=== PATIENT | female | born 1980 | race Caucasian/White ===

== ENCOUNTER 2017-08-03 03:24 | Inpatient (IN) | payer SELFPAY ==
[~2017-08-03] VITALS: Ht 167.6 cm; Wt 81.6 kg
[2017-08-03 03:28] VITALS: BP 128/77
--- NOTE | 2017-08-03 03:38 | NUR ---
PT TAKEN TO BED 8
[2017-08-03] MEDS ORDERED: NACL 0.9% 500 ML IV ONE (03:39)
[2017-08-03] MEDS ORDERED: ONDANSETRON 4 MG/2 ML VIAL IVP ONE (03:40)
[2017-08-03] MEDS ORDERED: KETOROLAC 30 MG/ML VIAL IVP ONE (03:40)
--- NOTE | 2017-08-03 03:43 | NUR ---
Dr. Leggett evaluating patient at bedside.
--- NOTE | 2017-08-03 03:45 | NUR ---
PATIENT PRESENTS TO ED WITH C/O EPIGASTRIC PAIN AND NAUSEA. HX OF GALLSTONES. PT SKIN IS PINK/WARM/DRY; AAOX4 WITH EVEN AND STEADY GAIT; LUNGS CLEAR BL; HR EVEN AND REGULAR; PT DENIES ANY FEVER, CP, SOB, OR COUGH AT THIS TIME; PATIENT STATES PAIN OF 10/10 AT THIS TIME; VSS; PATIENT POSITIONED FOR COMFORT; HOB ELEVATED; BEDRAILS UP X2; BED DOWN. ER MD MADE AWARE OF PT STATUS.
[2017-08-03 04:00] LABS: HEMATOCRIT 41.7 % (36-48); HEMOGLOBIN 13.4 g/dL (12.0-16.0); MEAN CORPUSCULAR HEMOGLOBIN 28 pg (27-31); MEAN CORPUSCULAR HGB CONC 32 g/dL (33-37); MEAN CORPUSCULAR VOLUME 86 fL (80-94); PLATELET COUNT (AUTO) 322 K/uL (140-450); RED BLOOD CELL COUNT(AUTO) 4.85 MIL/uL (4.20-5.40); RED CELL DISTRIBUTION WIDTH 11.9 % (11.6-13.7); WHITE BLOOD COUNT (AUTO) 7.5 K/uL (4.8-10.8)
[2017-08-03 04:13] LABS: ANION GAP 8.6 (8-16); CARBON DIOXIDE 30.8 mmol/L (21-32); CREATININE 0.8 mg/dL (0.6-1.3); POTASSIUM 3.4 mmol/L (3.5-5.1)
[2017-08-03 04:16] LABS: EOSINOPHILS % (MANUAL) 1 % (0-4); LYMPHOCYTES % (MANUAL) 32 % (20-46); MONOCYTES % (MANUAL) 12 % (5-12)
[2017-08-03 04:19] LABS: ALBUMIN 3.3 g/dL (3.4-5.0); TOTAL BILIRUBIN 0.2 mg/dL (0.0-1.0)
[2017-08-03] MEDS ORDERED: MORPHINE SULFATE 2 MG/ML SYR IVP ONE (05:05)
[2017-08-03] MEDS ORDERED: IBUP-2213 PO (05:07)
[2017-08-03] MEDS: NACL 0.9% 1,000 ML IV SCH ×3 (05:21→22:01)
[2017-08-03] MEDS ORDERED: HYDROmorphone 1 MG/ML AMP IVP PRN (05:25)
[2017-08-03] MEDS ORDERED: ONDANSETRON 4 MG/2 ML VIAL IVP PRN (05:25)
[2017-08-03] MEDS ORDERED: ACETAMINOPHEN 325 MG TAB PO PRN (05:25)
[2017-08-03] MEDS ORDERED: MORPHINE SULFATE 4 MG/ML SYR ONE (05:31)
--- NOTE | 2017-08-03 05:38 | NUR ---
Patient will be admitted to care of DR THOMPSON. Admited to TELE. Will go to room 112B. Belongings list completed. Report to MATTHEW ROD.
[2017-08-03 05:40] VITALS: BP 121/85
--- NOTE | 2017-08-03 05:40 | NUR ---
PATIENT ADMITTED TO THE UNIT FROM THE ER. PATIENT IS AWAKE, ALERT, AND ORIENTED. AMBULATORY. NO SIGNS AND SYMPTOMS OF DISTRESS NOTED. NO COMPLAINTS OF PAIN AT THIS TIME. SKIN IS INTACT. IV SITE IS NOTED ON LEFT AC, SALINE LOCKED. BED IN LOWEST POSITION, SIDE RAILS UP AND CALL LIGHT WITHIN REACH, WILL CONTINUE TO MONITOR.
[2017-08-03 05:48] LABS: PROTHROMBIN TIME 10.8 secs (10.8-13.4)
[2017-08-03 05:58] LABS: CHOL/HDL RATIO 2.5 (1-4.5); FREE T4 (FREE THYROXINE) 1.11 ng/dL (0.76-1.46); MAGNESIUM 2.1 mg/dL (1.8-2.4); PHOSPHORUS 4.1 mg/dL (2.5-4.9); THYROID STIMULATING HORMONE 3.86 uIU/mL (0.34-3.74)
[2017-08-03] MEDS ORDERED: NACL 0.9% 1,000 ML IV SCH (05:59)
[2017-08-03] MEDS ORDERED: KCL 20 MEQ/WATER INJ PREMIX 100 ML IV ONE (06:00)
--- NOTE | 2017-08-03 07:00 | NUR ---
[facility] CALLED. THEY WILL BE HERE AROUND 11:30 FOR HIDA SCAN
[2017-08-03 07:15] LABS: BILIRUBIN,URINE NEGATIVE (NEGATIVE); BLOOD, URINE 3+ (NEGATIVE); COLOR,URINE YELLOW (YELLOW); LEUKOCYTE ESTERASE ,URINE NEGATIVE (NEGATIVE); NITRITE, URINE NEGATIVE (NEGATIVE); UGLUCOSE NEGATIVE (NEGATIVE)
--- NOTE | 2017-08-03 07:19 | NUR ---
PATIENT REPORT GIVEN TO MORNING NURSE. PATIENT IS IN STABLE CONDITION
[2017-08-03 07:20] LABS: BARBITURATE, URINE NEG. ng/ml (NEG <=200); BENZODIAZEPINE, URINE NEG. ng/mL (NEG <=200); CANNABINOID, URINE NEG. ng/mL (NEG <=50); COCAINE, URINE NEG. ng/mL (NEG <=300); OPIATE, URINE NEG. ng/mL (NEG <=2000); PHENCYCLIDINE SCREEN,URINE NEG. ng/mL (NEG <=25)
--- NOTE | 2017-08-03 07:20 | NUR ---
RECEIVED PT REPORT FROM SACK SORTER NURSE AT BEDSIDE. PT IS AOX4. PT SHOWED NO S/S OF ACUTE DISTRESS. NO C/O PAIN AT THIS TIME. SKIN INTACT. IV NOTED ON THE LEFT ARM, PATENT, AND INFUSING WELL. CALL LIGHT WITHIN REACH. BED LOWERED AND CALL LIGHT WITHIN REACH. WILL CONTINUE TO MONITOR.
[2017-08-03 07:50] LABS: APPEARANCE,URINE CLEAR (CLEAR); RBC,URINE NONE SEEN /HPF (0-5); WBC,URINE 0-5 (RARE) /HPF (0-5)
[2017-08-03] MEDS: DOCUSATE SODIUM 100 MG GELCAP PO SCH ×2 (09:00→20:47)
[2017-08-03] MEDS ORDERED: PANTOPRAZOLE 40 MG INJ VIAL IVP SCH (09:00)
[2017-08-03] MEDS ORDERED: DOCUSATE SODIUM 100 MG GELCAP PO SCH (09:00)
[2017-08-03 09:13] VITALS: BP 118/58
--- NOTE | 2017-08-03 09:51 | NUR ---
PATIENT HAS BEEN SCREENED AND CATEGORIZED MODERATE NUTRITION RISK. PATIENT WILL BE SEEN WITHIN 3-5 DAYS OF ADMISSION. 08/05/17-08/07/[address]
[2017-08-03] MEDS: HYDROmorphone 1 MG/ML AMP IVP PRN ×2 (11:33→17:27)
[2017-08-03 12:00] VITALS: BP 117/75
--- NOTE | 2017-08-03 12:54 | NUR ---
RECEIVED PT REPORT FROM SUPERVISOR SANDING NURSE AT BEDSIDE. PT IS AOX4. PT SHOWED NO S/S OF ACUTE DISTRESS. NO C/O PAIN AT THIS TIME. SKIN INTACT. IV NOTED ON THE LEFT ARM, PATENT, AND INFUSING WELL. CALL LIGHT WITHIN REACH. BED LOWERED AND CALL LIGHT WITHIN REACH. WILL CONTINUE TO MONITOR. Addendum: 08/03/17 at 1255 by Agustin Hopkins RN PLEASE DISCARD THIS NOTE, WRONG TIME.
--- NOTE | 2017-08-03 13:20 | NUR ---
DR. CABEZAS SEEN THE PT. STATED HE WILL WAIT FOR THE HIDA SCAN RESULT, THEN DECIDE ABOUT THE SURGERY.
--- NOTE | 2017-08-03 15:00 | NUR ---
PT LEFT FOR HIDA SCAN. SALINE LOCKED. PT LEFT IN STABLE CONDITION.
--- NOTE | 2017-08-03 16:30 | NUR ---
PT BACK TO THE UNIT. VITAL SIGNS TAKEN. PT IN STABLE CONDITION. RADIOLOGIST WANTS TO KEEP HER NPO FOR ANOTHER HOUR IN CASE DELAYED IMAGE NEEDED.
[2017-08-03 17:00] VITALS: BP 115/78
--- NOTE | 2017-08-03 17:05 | NUR ---
ROAM CALLED FROM [facility] STATED THAT NO DELAYED IMAGE NEEDED. RESULT HASN'T BEEN READ BY THE RADIOLOGIST YET. INFORMED DR. CORCORAN. DR ORDERED CLEAR LIQUID DIET, THEN NPO AFTER MIDNIGHT.
[2017-08-03] MEDS ORDERED: AMPICILLIN 1,000 MG in NACL 0.9% 50 ML IV SCH (18:00)
--- NOTE | 2017-08-03 19:37 | NUR ---
PATIENT REPORT GIVEN TO THE PM NURSE AT BEDSIDE. PATIENT IS IN STABLE CONDITION
--- NOTE | 2017-08-03 19:40 | NUR ---
RECEIVED PT FROM DAY SHIFT NURSE PT IS AAOX4 AMBULATORY IV ON LEFT AC INFUSING WELL ON TELEMETRY SR , RELATIVES AT BED SIDE INITIAL ASSESSMENT DONE
[2017-08-03 20:00] VITALS: BP 140/74
--- NOTE | 2017-08-03 23:23 | NUR ---
DR CABEZAS WAS NOTIFY HIDE SCAN RESULT AND HE SAID FOR TOMORROW REGULAR DIET AND SHE CAN GO HOME AND HE CAN SEE PT ON HIS OFFICE AFTER DISCHARGE
[2017-08-04] VITALS: BP 116/75
[2017-08-04] MEDS: HYDROmorphone 1 MG/ML AMP IVP PRN ×4 (00:39→21:58)
--- NOTE | 2017-08-04 01:30 | NUR ---
AFTER PAIN MEDIC GIVEN PT SLEEPS WELL WITH NOT PAIN IV ON LEFT AC INFUSING WELL
[2017-08-04 04:00] VITALS: BP 102/61
--- NOTE | 2017-08-04 04:00 | NUR ---
PT AMBULATES TO THE RESTROOM VOIDING WELL DENIES ANY PAIN AT THIS TIME ON TELEMETRY SR
[2017-08-04] MEDS: AMPICILLIN 1,000 MG in NACL 0.9% 50 ML IV SCH ×3 (05:11→21:53)
--- NOTE | 2017-08-04 06:22 | NUR ---
PT VERBALIZED TO BE IN PAIN FOLLOW PROTOCOL PAIN MEDIC GIVEN ORDER
[2017-08-04 06:50] LABS: BASOPHILS # (AUTO) 0.3 K/uL (0.00-0.22); BASOPHILS % (AUTO) 4.7 % (0.0-2.0); EOSINOPHILS # (AUTO) 0.2 K/uL (0-0.4); EOSINOPHILS % (AUTO) 3.6 % (0.0-4.0); HEMATOCRIT 38.7 % (36-48); LYMPHOCYTES # (AUTO) 2.4 K/uL (2.5-16.5); LYMPHOCYTES % (AUTO) 39.8 % (20.5-51.1); MEAN CORPUSCULAR HEMOGLOBIN 29 pg (27-31); MEAN CORPUSCULAR HGB CONC 34 g/dL (33-37); MEAN CORPUSCULAR VOLUME 86 fL (80-94); MONOCYTES # (AUTO) 0.7 K/uL (0.8-1.0); MONOCYTES % (AUTO) 12.4 % (1.7-9.3); NEUTROPHILS # (AUTO) 2.3 K/uL (1.8-7.7); NEUTROPHILS % (AUTO) 39.5 % (42.2-75.2); PLATELET COUNT (AUTO) 307 K/uL (140-450); RED BLOOD CELL COUNT(AUTO) 4.52 MIL/uL (4.20-5.40); RED CELL DISTRIBUTION WIDTH 12.2 % (11.6-13.7); WHITE BLOOD COUNT (AUTO) 5.9 K/uL (4.8-10.8)
[2017-08-04 07:10] LABS: ANION GAP 8.4 (8-16); CARBON DIOXIDE 28.6 mmol/L (21-32); CREATININE 0.8 mg/dL (0.6-1.3)
--- NOTE | 2017-08-04 07:10 | NUR ---
RECEIVED REPORT FROM BOAT [employer] PLANT UTILITY SUPERVISOR RN. PATIENT IS AAOX4, NO SIGNS AND SYMPTOMS OF DISTRESS NOTED AT THIS TIME. HAS IV IN LEFT FA 20G INFUSING NS AT 120 ML/HR. SITE IS CLEAN, DRY, PATENT AND INTACT. DISCUSSED PLAN OF CARE WITH PATIENT AND SHE VERBALIZED UNDERSTANDING. BED IN LOWEST POSITION, SIDERAILS UP X2, CALL LIGHT PLACED WITHIN REACH, WILL CONTINUE TO MONITOR.
[2017-08-04 07:18] LABS: MAGNESIUM 2.1 mg/dL (1.8-2.4); PHOSPHORUS 3.2 mg/dL (2.5-4.9)
[2017-08-04] MEDS ORDERED: DICYCLOMINE HCL LIQUID 10 MG/5 ML UDC PO SCH (07:25)
[2017-08-04] MEDS ORDERED: LIDOCAINE VISCOUS 2% 20 ML UDC PO PRN (07:25)
[2017-08-04] MEDS ORDERED: ALUMINUM HYD/MAG/SIMETHICONE 30 ML UDC PO PRN (07:25)
[2017-08-04] MEDS: NACL 0.9% 1,000 ML IV SCH (07:26)
[2017-08-04 08:00] VITALS: BP 135/77
[2017-08-04] MEDS: ONDANSETRON 4 MG/2 ML VIAL IVP PRN ×2 (08:22→14:26)
[2017-08-04] MEDS: DOCUSATE SODIUM 100 MG GELCAP PO SCH ×2 (08:22→21:55)
[2017-08-04] MEDS: LACTOBACILLUS RHAMNOSUS GG 1 EACH CAP PO SCH (08:22)
--- NOTE | 2017-08-04 08:33 | NUR ---
PATIENT TRANSFERRED TO MED SURG STATUS. WILL REMOVE TELE BOX AND CONTINUE TO MONITOR PATIENT.
[2017-08-04] MEDS ORDERED: PANTOPRAZOLE 40 MG TABEC PO SCH (09:00)
--- NOTE | 2017-08-04 09:55 | NUR ---
PATIENT TRIED TO EAT SOME JELLO, SAID HER STOMACH STILL FEELS UPSET, AND VOMITED 60ML. NO SIGNS AND SYMPTOMS OF DISTRESS NOTED AT THIS TIME.
--- NOTE | 2017-08-04 13:41 | NUR ---
PATIENT VOMITED 200 ML. NO SIGNS AND SYMPTOMS OF DISTRESS NOTED AT THIS TIME. REQUESTED TO TAKE A SHOWER. MOTHER WILL ASSIST HER IN THE SHOWER.
[2017-08-04 16:30] VITALS: BP 133/78
--- NOTE | 2017-08-04 19:20 | NUR ---
RECEIVED BEDSIDE REPORT FROM DAY SHIFT NURSE, BRENT RN, PT STABLE, NO DISTRESS NOTED, AAOX4, SKIN INTACT, IV TO THE L FA 20 RUNNING NS @120 ML/HR INFUSING WELL, CURRENTLY REPORTED HAVING NO PAIN AND NAUSEA. FAMILY BY BEDSIDE, ALL SAFETY PRECAUTION MET, INITIAL ASSESSMENT DONE, PT RESTING, CALL LIGHT WITHIN REACH, WILL CONTINUE TO MONITOR.
[2017-08-04] MEDS: PANTOPRAZOLE 40 MG TABEC PO SCH (21:55)
[2017-08-04 21:58] VITALS: BP 121/81
--- NOTE | 2017-08-04 21:58 | NUR ---
PT C/O ABD PAIN 06/05, PAIN MEDICATION GIVEN, DUE MEDICATION ALSO GIVEN, PT TOLERATED WELL, NO DISTRESS NOTED, CALL LIGHT WITHIN REACH WILL CONTINUE TO MONITOR.
[2017-08-05] VITALS: BP 107/64
--- NOTE | 2017-08-05 00:02 | NUR ---
PT RESTING, NO DISTRESS NOTED, V/S TAKEN, PT STATED HAVING NO PAIN AT THIS TIME, CALL LIGHT WITHIN REACH, WILL CONTINUE TO MONITOR.
--- NOTE | 2017-08-05 02:00 | NUR ---
MADE ROUNDS. PT ASLEEP. NO S/S OF ANY DISCOMFORT NOR PAIN NOTED. WILL CONTINUE TO MONITOR.
[2017-08-05] MEDS: AMPICILLIN 1,000 MG in NACL 0.9% 50 ML IV SCH ×2 (05:23→12:42)
[2017-08-05] MEDS: HYDROcodone/APAP 7.5/325 MG 1 TAB PO PRN ×2 (05:26→10:28)
--- NOTE | 2017-08-05 05:26 | NUR ---
DUE MEDICATION GIVEN, PT C/O PAIN OF 4/10, PAIN MEDICATION GIVEN, NO DISTRESS NOTED, PT RESTING, CALL LIGHT WITHIN REACH, WILL CONTINUE TO MONITOR,
[2017-08-05 06:39] LABS: HEMATOCRIT 38.9 % (36-48); MEAN CORPUSCULAR HEMOGLOBIN 29 pg (27-31); MEAN CORPUSCULAR HGB CONC 33 g/dL (33-37); MEAN CORPUSCULAR VOLUME 86 fL (80-94); PLATELET COUNT (AUTO) 294 K/uL (140-450); RED BLOOD CELL COUNT(AUTO) 4.54 MIL/uL (4.20-5.40); WHITE BLOOD COUNT (AUTO) 6.1 K/uL (4.8-10.8)
[2017-08-05 06:59] LABS: CARBON DIOXIDE 27.9 mmol/L (21-32); CREATININE 0.8 mg/dL (0.6-1.3); POTASSIUM 3.9 mmol/L (3.5-5.1)
--- NOTE | 2017-08-05 07:12 | NUR ---
ENDORSED PT TO DAY SHIFT BY BEDSIDE, PT STABLE NO DISTRESS NOTED, CALL LIGHT WITHIN REACH.
--- NOTE | 2017-08-05 07:13 | NUR ---
RECEIVED REPORT FROM THE FACER OPERATOR NURSE AT BEDSIDE FOR CONTINUITY OF CARE. PT IS AWAKE AND ORIENTED. INTRODUCED MYSELF AND UPDATE THE BOARD. PT IS C/O SOME NAUSEA. WILL MEDICATE. WANTED TO AMBULATE TO THE BATHROOM. ASSISTED. SKIN IS INTACT. IV ON L FA 20G TKO. LBM ON 08/01/17. WILL SPEAK WITH DR. KAY GUTIERREZ. LABS ARE UNREMARKABLE. WILL CONTINUE TO MONITOR PT.
[2017-08-05 07:19] LABS: MAGNESIUM 2.1 mg/dL (1.8-2.4); PHOSPHORUS 3.2 mg/dL (2.5-4.9)
[2017-08-05 07:32] LABS: EOSINOPHILS % (MANUAL) 6 % (0-4); LYMPHOCYTES % (MANUAL) 40 % (20-46); MONOCYTES % (MANUAL) 15 % (5-12)
--- NOTE | 2017-08-05 07:54 | NUR ---
NASREEN AQUINO. NOTIFIED DR TEJEDA RE. CONSTIPATION. HE ALSO PUT IN A GI COCKTAIL FOR ABD PAIN. WILL FIND OUT PLAN.
[2017-08-05 08:00] VITALS: BP 107/73
[2017-08-05] MEDS ORDERED: ALUMINUM HYD/MAG/SIMETHICONE 30 ML UDC PO SCH (08:00)
[2017-08-05] MEDS ORDERED: LIDOCAINE VISCOUS 2% 20 ML UDC PO SCH (08:00)
[2017-08-05] MEDS ORDERED: DICYCLOMINE HCL LIQUID 10 MG/5 ML UDC PO SCH (08:00)
[2017-08-05] MEDS: PANTOPRAZOLE 40 MG TABEC PO SCH (08:33)
[2017-08-05] MEDS: LACTOBACILLUS RHAMNOSUS GG 1 EACH CAP PO SCH (08:33)
[2017-08-05] MEDS: DOCUSATE SODIUM 100 MG GELCAP PO SCH (08:33)
[2017-08-05] MEDS: ONDANSETRON 4 MG/2 ML VIAL IVP PRN (08:34)
--- NOTE | 2017-08-05 08:40 | NUR ---
ADMINISTERED MORNING MEDS. PT C/O OF NAUSEA, ADMINISTERED ZOFRAN. PT TOLERATED WELL. PT STILL C/O OF ABD PAIN. EXPLAINED TO HER THAT THE GI COCKTAIL SHOULD HELP WITH THE ABD PAIN AND DISCOMFORT. EXPLAINED TO HER THAT WE WILL REASSESS IN ABOUT 30 MIN BEFORE ADMINISTERING PAIN MED. PT VERBALIZED UNDERSTANDING. WILL CONTINUE TO MONITOR PT.
[2017-08-05] MEDS ORDERED: SODIUM PHOSPHATE 118 ML ENEM RC SCH (08:57)
[2017-08-05] MEDS ORDERED: SENNA 8.6 MG TAB PO SCH (09:00)
--- NOTE | 2017-08-05 09:00 | NUR ---
PT REFUSED THE ENEMA THAT WAS ORDERED. SHE STATED SHE WILL TRY TO AMBULATE AND TRY HAVING A BM BEFORE HAVING THE ENEMA.
[2017-08-05] MEDS ORDERED: PANT40EC28 PO (10:21)
[2017-08-05] MEDS ORDERED: DOCU-299 PO (10:21)
--- NOTE | 2017-08-05 10:30 | NUR ---
PT'S NAUSEA IS BETTER. STILL HAD SOME ABD PAIN. ADMINISTERED NORCO. PT TOLERATED WELL. WILL CONTINUE TO MONITOR PT.
--- NOTE | 2017-08-05 11:35 | NUR ---
PT AMBULATING IN THE HALLWAYS. NO BM YET. WILL CONTINUE TO MONITOR PT.
--- NOTE | 2017-08-05 11:40 | NUR ---
PT'S RIDE IS HERE. WHEELED PT OUT IN A WHEELCHAIR. PT PERSONAL BELONGINGS WITH HER. PT IS IN STABLE CONDITION. Addendum: 08/05/17 at 1455 by Marine Tillman RN TIME AMENDED: 1444
--- NOTE | 2017-08-05 14:29 | NUR ---
GAVE DISCHARGE INSTRUCTIONS TO PT. ANSWERED ALL QUESTIONS. PT VERBALIZED UNDERSTANDING AND SIGNED APPROPRIATE FORMS. REMOVED IV, CANNULA INTACT. NO SIGNS OF BLEEDING. REMOVED ID BAND. PT WILL NOW GET DRESSED AND WILL LET ME KNOW WHEN HER RIDE GETS HERE. WE WILL HAVE A WHEELCHAIR AVAILABLE.
--- NOTE | 2017-08-05 14:40 | NUR ---
PT'S RIDE IS HERE. WHEELED PT OUT IN A WHEELCHAIR. PT PERSONAL BELONGINGS WITH HER. PT IS IN STABLE CONDITION.
== END 2017-08-05 14:40 | disposition home or self-care (01) | DRG 445 ==
LOC: MED 03:24 → MTU 05:25
PROVIDERS: ADMIT Family Medicine; ATTEND Family Medicine
DX: K80.70 Calculus of gallbladder and bile duct without cholecystitis without obstruction (principal); E44.1 Mild protein-calorie malnutrition; K75.81 Nonalcoholic steatohepatitis (NASH); K29.70 Gastritis, unspecified, without bleeding; E02 Subclinical iodine-deficiency hypothyroidism; E83.51 Hypocalcemia; R31.9 Hematuria, unspecified; E87.6 Hypokalemia; E66.3 Overweight; Z68.29 Body mass index [BMI] 29.0-29.9, adult
CPT/HCPCS: 36415; 71010; 76705; 78445; 80048; 80053; 80305; 81001; 81025; 82040; 82150; 83036; 83690; 83735; 83880; 84100; 84439; 84443; 84484; 85025; 85610; 85730; 87081; 93005; 96361; 96374; 96375; 99285; A9510; C9113; J0290; J1170; J1885; J2270; J2405; J3480; J7030; Q0092

== ENCOUNTER 2018-10-17 14:04 | Emergency (ER) | payer SELFPAY ==
[~2018-10-17] VITALS: Ht 167.6 cm; Wt 68.9 kg
[~2018-10-17 14:04] MED LIST: DOCU-299 PO; PANT40EC28 PO
[2018-10-17 14:10] VITALS: BP 126/79
--- NOTE | 2018-10-17 14:18 | NUR ---
patient to lobby with steady gait with parents. awaiting available room. nad. ua cup given.
--- NOTE | 2018-10-17 15:37 | NUR ---
PT TO ER BED 4
--- NOTE | 2018-10-17 16:21 | NUR ---
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 Patient sts taking Motrin with no relief. Patient with steady gait. Full ROM to neck. Addendum: 10/17/18 at 1816 by MED1 cough
[2018-10-17] MEDS ORDERED: IBUPROFEN 400 MG TAB PO ONE (16:30)
[2018-10-17] MEDS ORDERED: HYDROcodone/APAP 5/325 MG 1 TAB TAB PO ONE (18:00)
--- NOTE | 2018-10-17 18:05 | NUR ---
Patient being reevaluated by DR QUIJANO at bedside
[2018-10-17 18:19] VITALS: BP 120/66
--- NOTE | 2018-10-17 18:20 | NUR ---
Patient discharged with v/s stable. Written and verbal after care instructions given and explained. Patient alert, oriented and verbalized understanding of instructions. Ambulatory with steady gait. All questions addressed prior to discharge. ID band removed. Patient advised to follow up with PMD. Rx of NORCO & TESSALON given. Patient educated on indication of medication including possible reaction and side effects. Opportunity to ask questions provided and answered.
== END 2018-10-17 18:20 | disposition home or self-care (01) ==
LOC: MED 14:04
DX: S39.92XA Unspecified injury of lower back, initial encounter (principal); S00.93XA Contusion of unspecified part of head, initial encounter; B34.9 Viral infection, unspecified; Z79.899 Other long term (current) drug therapy; W01.198A Fall on same level from slipping, tripping and stumbling with subsequent striking against other object, initial encounter; Y93.02 Activity, running; Y92.89 Other specified places as the place of occurrence of the external cause; Y99.8 Other external cause status
CPT/HCPCS: 72100; 81002; 81025; 99283

== ENCOUNTER 2019-05-15 10:20 | Emergency (ER) | payer SELFPAY ==
[~2019-05-15] VITALS: Ht 170.2 cm; Wt 88.5 kg
[2019-05-15 10:32] VITALS: BP 143/92
--- NOTE | 2019-05-15 10:36 | NUR ---
PATIENT AMBULATED TO BED 4 AT THIS TIME,
--- NOTE | 2019-05-15 10:50 | NUR ---
PT C/O SUDDEN ONSET OF EPIGASTRIC, RUQ ABD PAIN RADIATES TO BACK AND RIGHT SHOULDER X 50 MINS WHITE SUGAR PAN TANK OPERATOR. NAUSEA AND VOMITING FOR ONE TIME SINCE THEN. NO DIARRHEA. NO URINARY COMPLAINTS. REPORTS HX OF GALLBLADDER STONES W/O REMOVAL. MARIE'S SIGN NEGATIVE. PATIENT STATES PAIN OF 10/10 AT THIS TIME; VSS; PATIENT POSITIONED FOR COMFORT; HOB ELEVATED; BEDRAILS UP X1; BED DOWN. ER MD MADE AWARE OF PT STATUS.
[2019-05-15 11:13] LABS: BASOPHILS % (AUTO) 0.5 % (0.0-2.0); EOSINOPHILS # (AUTO) 0.1 K/uL (0-0.4); EOSINOPHILS % (AUTO) 1.4 % (0.0-4.0); HEMATOCRIT 40.6 % (36-48); HEMOGLOBIN 13.4 g/dL (12.0-16.0); LYMPHOCYTES # (AUTO) 1.7 K/uL (2.5-16.5); LYMPHOCYTES % (AUTO) 30.3 % (20.5-51.1); MEAN CORPUSCULAR HEMOGLOBIN 28 pg (27-31); MEAN CORPUSCULAR HGB CONC 33 g/dL (33-37); MEAN CORPUSCULAR VOLUME 84.3 fL (80-94); MONOCYTES # (AUTO) 0.6 K/uL (0.8-1.0); MONOCYTES % (AUTO) 11.2 % (1.7-9.3); NEUTROPHILS # (AUTO) 3.1 K/uL (1.8-7.7); NEUTROPHILS % (AUTO) 56.6 % (42.2-75.2); PLATELET COUNT (AUTO) 311 K/uL (140-450); RED BLOOD CELL COUNT(AUTO) 4.82 MIL/uL (4.20-5.40); RED CELL DISTRIBUTION WIDTH 13.3 % (11.6-13.7); WHITE BLOOD COUNT (AUTO) 5.5 K/uL (4.8-10.8)
[2019-05-15] MEDS ORDERED: FAMOTIDINE 20 MG TAB PO ONE (11:20)
[2019-05-15] MEDS ORDERED: ONDANSETRON 4 MG ODT PO ONE ×2 (11:20→12:30)
[2019-05-15] MEDS ORDERED: KETOROLAC 60 MG/2 ML VIAL IM ONE (11:20)
[2019-05-15 11:30] LABS: POTASSIUM 4.3 mmol/L (3.5-5.1)
[2019-05-15 11:31] LABS: ALBUMIN 3.4 g/dL (3.4-5.0); CARBON DIOXIDE 30.3 mmol/L (21-32); CREATININE 0.8 mg/dL (0.6-1.3); TOTAL BILIRUBIN 0.5 mg/dL (0.0-1.0)
[2019-05-15] MEDS ORDERED: MORPHINE SULFATE 4 MG/ML SYR IM ONE (12:30)
[2019-05-15 13:06] VITALS: BP 127/78
--- NOTE | 2019-05-15 13:07 | NUR ---
Patient discharged with v/s stable. Written and verbal after care instructions given and explained. Patient alert, oriented and verbalized understanding of instructions. Ambulatory with steady gait. All questions addressed prior to discharge. ID band removed. Patient advised to follow up with PMD. Rx of norco/ zofran given. Patient educated on indication of medication including possible reaction and side effects. Opportunity to ask questions provided and answered.
== END 2019-05-15 13:07 | disposition home or self-care (01) ==
LOC: MED 10:20
DX: K80.20 Calculus of gallbladder without cholecystitis without obstruction (principal)
CPT/HCPCS: 36415; 80053; 81002; 81025; 83690; 85025; 96372; 99283; J1885; J2270; Q0162

== ENCOUNTER 2019-09-24 03:29 | Inpatient (IN) | payer SELFPAY ==
[~2019-09-24] VITALS: Ht 170.2 cm; Wt 86.2 kg
[2019-09-24 03:41] VITALS: BP 138/71
--- NOTE | 2019-09-24 03:46 | NUR ---
PT PROVIDED SAMPLE OF URINE
--- NOTE | 2019-09-24 03:46 | NUR ---
PT TAKEN BACK TO LOBBY
[2019-09-24] MEDS ORDERED: NACL 0.9% 500 ML IV ONE (03:47)
[2019-09-24] MEDS ORDERED: KETOROLAC 30 MG/ML VIAL IVP ONE (03:50)
[2019-09-24] MEDS ORDERED: ONDANSETRON 4 MG/2 ML VIAL IVP ONE (03:50)
--- NOTE | 2019-09-24 03:50 | NUR ---
39 Y/O FEMALE BIB FOR EPISGATRIC PAIN X3 DAYS ALONG WITH NAUSEA AND VOMITING. PAIN RADIATES TO BACK. TOO MOTRIN YESTERDAY WITH LITTLE RELIEF. C/O OF COUGH. PAIN IS AN /10. ERMD MADE AWARE OF STATUS. SIDE RAILSX1. PLACED ON MONITOR. HX- HTN NKLA RX: DENIES
--- NOTE | 2019-09-24 03:52 | NUR ---
PT TAKEN TO BED #10
[2019-09-24 04:08] LABS: BASOPHILS % (AUTO) 0.4 % (0.0-2.0); EOSINOPHILS # (AUTO) 0.1 K/uL (0-0.4); EOSINOPHILS % (AUTO) 1.6 % (0.0-4.0); HEMATOCRIT 41.3 % (36-48); HEMOGLOBIN 13.8 g/dL (12.0-16.0); LYMPHOCYTES # (AUTO) 1.4 K/uL (2.5-16.5); LYMPHOCYTES % (AUTO) 22.8 % (20.5-51.1); MEAN CORPUSCULAR HEMOGLOBIN 28 pg (27-31); MEAN CORPUSCULAR HGB CONC 33 g/dL (33-37); MEAN CORPUSCULAR VOLUME 85.2 fL (80-94); MONOCYTES # (AUTO) 0.9 K/uL (0.8-1.0); NEUTROPHILS # (AUTO) 3.8 K/uL (1.8-7.7); NEUTROPHILS % (AUTO) 60.2 % (42.2-75.2); PLATELET COUNT (AUTO) 280 K/uL (140-450); RED BLOOD CELL COUNT(AUTO) 4.85 MIL/uL (4.20-5.40); RED CELL DISTRIBUTION WIDTH 13.6 % (11.6-13.7); WHITE BLOOD COUNT (AUTO) 6.3 K/uL (4.8-10.8)
--- NOTE | 2019-09-24 04:13 | NUR ---
Dr. Leggett examining patient.
--- NOTE | 2019-09-24 04:50 | NUR ---
Ultrasound at bedside.
[2019-09-24 06:10] LABS: ANION GAP 12.8 (8-16); POTASSIUM 3.8 mmol/L (3.5-5.1)
[2019-09-24] MEDS ORDERED: MORPHINE SULFATE 2 MG/ML SYR IVP ONE (06:10)
[2019-09-24 06:11] LABS: ALBUMIN 3.4 g/dL (3.4-5.0); CREATININE 0.8 mg/dL (0.6-1.3); TOTAL BILIRUBIN 0.8 mg/dL (0.0-1.0)
--- NOTE | 2019-09-24 06:18 | NUR ---
PULLED 2MG/1ML OF ATIVAN. WASTED 1MG/0.5ML WITH MATTHEW MACKAY AND ADMINISTERED 1MG/0.5ML TO THE PATIENT.
[2019-09-24] MEDS ORDERED: NACL 0.9% 1,000 ML IV SCH (06:52)
[2019-09-24] MEDS ORDERED: DOCUSATE SODIUM 100 MG GELCAP PO PRN (06:55)
[2019-09-24] MEDS ORDERED: HYDROcodone/APAP 5/325 MG 1 TAB TAB PO PRN (06:55)
[2019-09-24] MEDS ORDERED: ACETAMINOPHEN 325 MG TAB PO PRN (06:55)
[2019-09-24] MEDS ORDERED: MORPHINE SULFATE 2 MG/ML SYR IVP PRN ×2 (06:55→13:25)
[2019-09-24 07:06] VITALS: BP 120/85
--- NOTE | 2019-09-24 07:06 | NUR ---
Patient will be admitted to care of DR. FERRIS. Admited to Med/Surg. Will go to room 106 B. Belongings list completed. Report to MATTHEW DARDEN.
--- NOTE | 2019-09-24 07:06 | NUR ---
RECEIVED PATIENT FROM ED NURSE VIA WHEELCHAIR. PATIENT IS AAOX4. RESPIRATIONS EVEN AND UNLABORED, ON ROOM AIR. ABDOMEN FLAT AND NONTENDER, ABDOMINAL PAIN/CHEST AREA PAIN OF 6/10. SKIN INTACT, WARM AND DRY. IV ON THE LEFT AC GAUGE 20, SALINE LOCK. INTACT AND PATENT. PATIENT IS CONTINENT. PATIENT IS AMBULATORY. CALL LIGHT IS WITHIN REACH. BED IN LOW POSITION. WILL CONTINUE TO MONITOR
[2019-09-24] MEDS: ONDANSETRON 4 MG/2 ML VIAL IM/IVP PRN ×2 (08:10→20:15)
--- NOTE | 2019-09-24 08:18 | NUR ---
GIVEN NORCO FOR PAIN 6/10 IN THE CHEST AREA AND ZOFRAN FOR N/V. EXPLAINED TO PATIENT INDICATIONS AND SIDE EFFECTS. PATIENT VERBALIZED UNDERSTANDING. BED IN LOW POSITION. CALL LIGHT IS WITHIN REACH. WILL CONTINUE TO MONITOR
[2019-09-24] MEDS: DEXT 5% /NACL 0.9% 1,000 ML IV SCH ×2 (08:20→18:20)
[2019-09-24 08:40] LABS: PROTHROMBIN TIME 10.2 secs (10.8-13.4)
[2019-09-24 09:01] LABS: CHOL/HDL RATIO 2.6 (1-4.5); MAGNESIUM 1.8 mg/dL (1.8-2.4); PHOSPHORUS 2.7 mg/dL (2.5-4.9); THYROID STIMULATING HORMONE 4.27 uIU/mL (0.34-3.74)
--- NOTE | 2019-09-24 09:05 | NUR ---
PATIENT HAS BEEN SCREENED AND CATEGORIZED MODERATE NUTRITION RISK. PATIENT WILL BE SEEN WITHIN 3-5 DAYS OF ADMISSION. 09/26/18 09/28/[address]
--- NOTE | 2019-09-24 09:49 | NUR ---
GIVEN MORPHINE FOR CHEST AREA 8/10 PAIN. EXPLAINED TO PATIENT INDICATION AND SIDE EFFECTS. PATIENT VERBALIZED UNDERSTANDING. WILL CONTINUE TO MONITOR
--- NOTE | 2019-09-24 11:23 | NUR ---
Neon Installer Note: Basic Screen: Yes High Risk DC Screen Lee: ANDRIA Vinson Relationship: SIGNIFICANT OTHER Pre-Admission Living Arrangements: Lives with Other Prior ADL Independent Current Home Health Name/Tel: N/A Current DME/02 Name/Tel: N/A Current Hospice Name/Tel: N/A Current Dialysis Name/Tel: N/A Healthcare Decision Maker: Patient Advance Directive No - REFUSED Information Taught: Advance Directive Person Taught: Patient Teaching Tools: Verbal Factors Affecting Learning: None Participation Level: Refused Evaluation: Verbalizes Understanding Needs Additional Education: No Discipline: Case Mgt/Social Svcs Tentative Discharge Plan/Destination: No Needs Identified Will require assistance post discharge: No Referred to Desktop Support Associate: No Tentative Discharge Plan Summary: Patient is a 39-year-old female admitted for transaminitis. Patient has PMHX of gallstones. Patient was admitted from home. SW met with patient at bedside to verify demographics. Patient reports no history of mental health and no history of substance abuse. Patient's tentative discharge plan is to return home. No further needs identified. Signature: CONCEPCION Marvin Date: Sep 24, 2019 Time: 11:19
--- NOTE | 2019-09-24 12:30 | NUR ---
SPOKE TO OTTO FROM [facility]. SHE TOLD ME TO FAX HIDA SCAN ORDER. WILL FAX ORDER
--- NOTE | 2019-09-24 12:36 | NUR ---
DR. CABEZAS MADE ROUNDS AND SPOKE WITH THE PATIENT AND PATIENT'S BOYFRIEND
--- NOTE | 2019-09-24 12:40 | NUR ---
FAX HIDA SCAN ORDER TO [facility].
--- NOTE | 2019-09-24 14:30 | NUR ---
HIDA SCAN WILL BE DONE AROUND 4:30-5:50PM TODAY. INFORMED PATIENT SHE WILL NOT BE HAVING ANY OPIOIDS OR ZOFRAN FOR HIDA SCAN. PATIENT VERBALIZED UNDERSTANDING.
[2019-09-24] MEDS ORDERED: PANTOPRAZOLE 40 MG INJ VIAL IVP SCH (15:00)
--- NOTE | 2019-09-24 15:00 | NUR ---
HELD PROTONIX. ALO, RADIOLOGY, MADE AWARE TO HOLD MEDICATIONS FOR HIDA SCAN
--- NOTE | 2019-09-24 15:37 | NUR ---
PATIENT IS SLEEPING AT THIS TIME. NO SIGNS OF DISTRESS NOTED. BOYFRIEND, ANDRIA, AT BEDSIDE. WILL CONTINUE TO MONITOR
[2019-09-24 16:39] LABS: APPEARANCE,URINE CLEAR (CLEAR); BILIRUBIN,URINE 2+ (NEGATIVE); BLOOD, URINE NEGATIVE (NEGATIVE); COLOR,URINE YELLOW (YELLOW); LEUKOCYTE ESTERASE ,URINE NEGATIVE (NEGATIVE); NITRITE, URINE NEGATIVE (NEGATIVE); UGLUCOSE NEGATIVE (NEGATIVE)
[2019-09-24 16:54] LABS: BARBITURATE, URINE NEG. ng/ml (NEG <=200); BENZODIAZEPINE, URINE NEG. ng/mL (NEG <=200); CANNABINOID, URINE NEG. ng/mL (NEG <=50); COCAINE, URINE NEG. ng/mL (NEG <=300); OPIATE, URINE POS. ng/mL (NEG <=2000); PHENCYCLIDINE SCREEN,URINE NEG. ng/mL (NEG <=25)
[2019-09-24 18:00] VITALS: BP 101/62
--- NOTE | 2019-09-24 18:00 | NUR ---
PATIENT WANT PAIN MEDICATION. I WAS GOING TO GIVE HIM MORPHINE. PATIENT REFUSED AND WANTS ANOTHER NURSE TO GIVE HIM MEDICATIONS.
--- NOTE | 2019-09-24 18:25 | NUR ---
PATIENT OFF UNIT FOR HIDA SCAN VIA WHEELCHAIR
--- NOTE | 2019-09-24 19:10 | NUR ---
ENDORSED PATIENT TO CITY CARRIER NURSE IN STABLE CONDITION
--- NOTE | 2019-09-24 19:11 | NUR ---
RECEIVED REPORT FROM EMILIANO DARDEN RN, [facility]
--- NOTE | 2019-09-24 19:55 | NUR ---
PT CAME BACK FROM HIDA SCAN, IN STABLE CONDITION, NO DISTRESS NOTED, IV TO R AC 20G, PER PT IV IS HURTING, WILL PUT NEW IV, PT RESTING, NO DISTRESS NOTED, INITIAL ASSESSMENT DONE, ALL SAFETY PRECAUTION MET, CALL LIGHT WITHIN REACH, WILL CONTINUE TO MONITOR.
[2019-09-24] MEDS: PANTOPRAZOLE 40 MG INJ VIAL IVP SCH (20:15)
[2019-09-24] MEDS: KETOROLAC 30 MG/ML VIAL IVP PRN (20:15)
--- NOTE | 2019-09-24 20:15 | NUR ---
PT C/O ABD PAIN, AND NAUSEA, NAUSEA MEDICATION, PAIN MEDICATION AND DUE MEDICATION ADMINISTERED, PER DR ORDER, NO DISTRESS NOTED, CALL LIGHT WITHIN REACH, WILL CONTINUE TO MONITOR.
--- NOTE | 2019-09-24 22:10 | NUR ---
PT SLEEPING,NO DISTRESS NOTED, CALL LIGHT WITHIN REACH, WILL CONTINUE TO MONITOR.
[2019-09-25] VITALS: BP 114/75
--- NOTE | 2019-09-25 00:10 | NUR ---
PT SLEEPING, V/S TAKEN, WNL CALL LIGHT WITHIN REACH, WILL CONTINUE TO MONITOR.
--- NOTE | 2019-09-25 00:47 | NUR ---
PT C/O ABD PAIN 05/05, PAIN MEDICATION PER DR ORDERED ADMINISTERED, PT TOLERATED WELL, NO DISTRESS NOTED, CALL LIGHT WITHIN REACH, WILL CONTINUE TO MONITOR.
--- NOTE | 2019-09-25 02:54 | NUR ---
CHECKED ON PT, PT SLEEPING, NO DISTRESS NOTED, CALL LIGHT WITHIN REACH, WILL CONTINUE TO MONITOR.
[2019-09-25] MEDS: DEXT 5% /NACL 0.9% 1,000 ML IV SCH ×2 (04:01→14:20)
[2019-09-25 07:15] LABS: ANION GAP 12.7 (8-16); CARBON DIOXIDE 24.8 mmol/L (21-32); CREATININE 0.7 mg/dL (0.6-1.3); POTASSIUM 3.5 mmol/L (3.5-5.1)
--- NOTE | 2019-09-25 07:15 | NUR ---
RECEIVED BED SIDE REPORT FROM MEDICAL DEVICE SALES NURSE, PATIENT IS IN STABLE CONDITION. WILL CONTINUE TO MONITOR
[2019-09-25 07:17] LABS: BASOPHILS % (AUTO) 0.5 % (0.0-2.0); EOSINOPHILS # (AUTO) 0.2 K/uL (0-0.4); EOSINOPHILS % (AUTO) 4.1 % (0.0-4.0); HEMOGLOBIN 12.8 g/dL (12.0-16.0); LYMPHOCYTES # (AUTO) 1.8 K/uL (2.5-16.5); LYMPHOCYTES % (AUTO) 46.3 % (20.5-51.1); MEAN CORPUSCULAR HEMOGLOBIN 28 pg (27-31); MEAN CORPUSCULAR HGB CONC 33 g/dL (33-37); MONOCYTES # (AUTO) 0.7 K/uL (0.8-1.0); MONOCYTES % (AUTO) 18.3 % (1.7-9.3); NEUTROPHILS # (AUTO) 1.2 K/uL (1.8-7.7); NEUTROPHILS % (AUTO) 30.8 % (42.2-75.2); PLATELET COUNT (AUTO) 242 K/uL (140-450); RED BLOOD CELL COUNT(AUTO) 4.54 MIL/uL (4.20-5.40); RED CELL DISTRIBUTION WIDTH 13.7 % (11.6-13.7); WHITE BLOOD COUNT (AUTO) 3.8 K/uL (4.8-10.8)
--- NOTE | 2019-09-25 07:23 | NUR ---
ENDORSED PT TO DAY SHIFT NURSE YELITZA RN, PT STABLE, NO DISTRESS NOTED, CALL LIGHT WITHIN REACH.
[2019-09-25 07:25] LABS: MAGNESIUM 1.8 mg/dL (1.8-2.4); PHOSPHORUS 2.9 mg/dL (2.5-4.9)
[2019-09-25 08:00] VITALS: BP 117/77
[2019-09-25 08:07] LABS: T4 (THYROXINE) 8.1 ug/dL (4.5-12.0)
[2019-09-25] MEDS: KETOROLAC 30 MG/ML VIAL IVP PRN (08:34)
[2019-09-25] MEDS: PANTOPRAZOLE 40 MG INJ VIAL IVP SCH (08:34)
[2019-09-25 08:46] LABS: ALBUMIN 2.8 g/dL (3.4-5.0); BILIRUBIN,DIRECT 0.2 mg/dL (0.0-0.3); TOTAL BILIRUBIN 0.4 mg/dL (0.0-1.0)
--- NOTE | 2019-09-25 09:15 | NUR ---
PATIENT IN BED, RESTING,. NO DISTRESS NOTED. WILL CONTINUE TO MONITOR
--- NOTE | 2019-09-25 12:05 | NUR ---
ACKNOWLEDGED ORDERS FOR DISCHARGE, WILL COMPLETE DISCHARGE ORDERS
--- NOTE | 2019-09-25 13:26 | NUR ---
PATIENT STABLE, DOING ROUNDS, CALL LIGHT WITHIN REACH
[2019-09-25] MEDS ORDERED: guaiFENesin 20 MG/ML UDC PO PRN (14:20)
[2019-09-25] MEDS ORDERED: ONDA4TAB PO (15:55)
[2019-09-25] MEDS ORDERED: HYDR-5122 PO (15:56)
--- NOTE | 2019-09-25 16:15 | NUR ---
PATIENT EDUCATED ON DISCHARGED INSTRUCTIONS. PATIENT VERBALIZED UNDERSTANDING, BELONGINGS ARE WITH PATIENT, PATIENT SIGNED DISCHARGE INSTUCTIONS AND ALL QUESTIONS WERE ANSWERED. PATIENT WILL GET DRESS FOR DISCHARGE
--- NOTE | 2019-09-25 16:30 | NUR ---
PATIENT DISCHARGED AT THIS TIME, PATIENT IN STABLE CONDITION, MEDICATIONS WERE GIVEN TO PATIENT, NOTE FOR WORK WAS GIVEN TO PATIENT. PATIENT AT THE BED SIDE WITH MOTHER WHO IS DRIVING HER HOME, IV DISCONTINUED WITH LUMEN IN TACT, NO REDNESS OR SWELLING NOTED. ID BAND REMOVED. PATIENT'S GAIT IS STEADY AND WAS ESCORTED TO THE LOBBY FOR DISCHARGE
[2019-09-26 06:07] LABS: HEPATITIS A ANTIBODY IGM Negative (Negative); HEPATITIS B CORE AB TOTAL Negative (Negative); HEPATITIS B SURFACE ANTIBODY Reactive (.); HEPATITIS B SURFACE ANTIGEN Negative (Negative)
== END 2019-09-25 16:30 | disposition home or self-care (01) | DRG 446 ==
LOC: MED 03:29 → MTU 06:46
PROVIDERS: ADMIT General Practice; ATTEND General Practice
DX: K80.20 Calculus of gallbladder without cholecystitis without obstruction (principal); R74.0 Nonspecific elevation of levels of transaminase and lactic acid dehydrogenase [LDH]; E02 Subclinical iodine-deficiency hypothyroidism; E66.3 Overweight; Z68.29 Body mass index [BMI] 29.0-29.9, adult
CPT/HCPCS: 36415; 71045; 76705; 78445; 80048; 80053; 80076; 80305; 81003; 81025; 83036; 83605; 83690; 83735; 83880; 84100; 84436; 84443; 85025; 85610; 85730; 86704; 86706; 86708; 86709; 86803; 87081; 87340; 96361; 96374; 96375; 99285; A9510; C9113; J1644; J1885; J2270; J2405; J7030; J7042; Q0092

== ENCOUNTER 2021-02-11 03:45 | Inpatient (IN) | payer MEDICAID, SELFPAY ==
[~2021-02-11] VITALS: Ht 172.7 cm; Wt 85.7 kg
[~2021-02-11 03:45] MED LIST changes: -DOCU-299 PO; +HYDR-5122 PO; +ONDA4TAB PO; -PANT40EC28 PO
[2021-02-11 03:51] VITALS: BP 118/87
--- NOTE | 2021-02-11 04:00 | NUR ---
To ED bed 11
--- NOTE | 2021-02-11 04:14 | NUR ---
see complete assessment.
[2021-02-11] MEDS ORDERED: KETOROLAC 30 MG/ML VIAL IVP ONE (04:30)
[2021-02-11] MEDS ORDERED: NACL 0.9% 1,000 ML IV ONE ×2 (04:30→05:45)
[2021-02-11] MEDS ORDERED: ONDANSETRON 4 MG/2 ML VIAL IVP ONE (04:30)
[2021-02-11] MEDS ORDERED: MORPHINE SULFATE 4 MG/ML SYR IVP ONE ×2 (04:30→05:45)
--- NOTE | 2021-02-11 04:54 | NUR ---
urine collected. labs drawn during IV start and dropped off to Lab.
[2021-02-11 04:56] LABS: APPEARANCE,URINE CLEAR (CLEAR); BILIRUBIN,URINE NEGATIVE (NEGATIVE); BLOOD, URINE NEGATIVE (NEGATIVE); COLOR,URINE YELLOW (YELLOW); LEUKOCYTE ESTERASE ,URINE TRACE (NEGATIVE); NITRITE, URINE NEGATIVE (NEGATIVE); UGLUCOSE NEGATIVE (NEGATIVE)
[2021-02-11 04:59] LABS: EOSINOPHILS # (AUTO) 0.2 K/uL (0-0.4); EOSINOPHILS % (AUTO) 1.7 % (0.0-4.0); HEMATOCRIT 39.5 % (36-48); HEMOGLOBIN 13.2 g/dL (12.0-16.0); LYMPHOCYTES # (AUTO) 1.4 K/uL (2.5-16.5); LYMPHOCYTES % (AUTO) 13.6 % (20.5-51.1); MEAN CORPUSCULAR HEMOGLOBIN 28 pg (27-31); MEAN CORPUSCULAR HGB CONC 34 g/dL (33-37); MEAN CORPUSCULAR VOLUME 84.2 fL (80-94); MONOCYTES # (AUTO) 0.5 K/uL (0.8-1.0); MONOCYTES % (AUTO) 5.2 % (1.7-9.3); NEUTROPHILS # (AUTO) 8.3 K/uL (1.8-7.7); NEUTROPHILS % (AUTO) 79.5 % (42.2-75.2); PLATELET COUNT (AUTO) 322 K/uL (140-450); RED BLOOD CELL COUNT(AUTO) 4.69 MIL/uL (4.20-5.40); RED CELL DISTRIBUTION WIDTH 13.4 % (11.6-13.7); WHITE BLOOD COUNT (AUTO) 10.5 K/uL (4.8-10.8)
[2021-02-11 05:11] LABS: ALBUMIN 3.4 g/dL (3.4-5.0); ANION GAP 13.6 (8-16); CARBON DIOXIDE 24.8 mmol/L (21-32); CREATININE 0.7 mg/dL (0.6-1.3); POTASSIUM 3.4 mmol/L (3.5-5.1); TOTAL BILIRUBIN 1.1 mg/dL (0.0-1.0)
[2021-02-11 05:30] LABS: RBC,URINE 0-5 /HPF (0-5)
--- NOTE | 2021-02-11 05:32 | NUR ---
states pain is decreased to 2/10 and tolerable.
--- NOTE | 2021-02-11 05:37 | NUR ---
pt now states pain is slowly coming back and states 7/[address] Huber to be made aware.
--- NOTE | 2021-02-11 05:51 | NUR ---
Covid swab collected and sent to lab.
--- NOTE | 2021-02-11 05:59 | NUR ---
taken to CT via w/c
--- NOTE | 2021-02-11 06:07 | NUR ---
pt returned from CT.
[2021-02-11] MEDS ORDERED: cefTRIAXone 1,000 MG VIAL ONE (06:25)
[2021-02-11] MEDS ORDERED: LIDOCAINE VISCOUS 2% 20 ML UDC ONE (06:34)
[2021-02-11] MEDS ORDERED: ALUMINUM HYD/MAG/SIMETHICONE 30 ML UDC ONE (06:34)
[2021-02-11] MEDS ORDERED: DICYCLOMINE HCL LIQUID 10 MG/5 ML UDC ONE (06:34)
[2021-02-11] MEDS ORDERED: DICYCLOMINE HCL LIQUID 20 MG, ALUMINUM HYD/MAG/SIMETHICONE 30 ML, LIDOCAINE VISCOUS 2% ... PO ONE ×3 (06:35)
--- NOTE | 2021-02-11 06:53 | NUR ---
NAD noted. placed call light at bedside.
[2021-02-11] MEDS ORDERED: HYDROmorphone 1 MG/ML AMP IVP ONE ×2 (07:00→21:50)
[2021-02-11] MEDS ORDERED: CHOLECALCIFEROL 1,000 IU TAB ONE (07:03)
[2021-02-11] MEDS: DEXT 5% /NACL 0.9% 1,000 ML IV SCH ×3 (07:10→20:21)
--- NOTE | 2021-02-11 07:10 | NUR ---
PATIENT AMBULATED FROM RESTROOM WITH STEADY GAIT. PLACED BACK ON COAL SCREENER, [place] [facility]
--- NOTE | 2021-02-11 07:12 | NUR ---
report endorsed to Sarah CASTRO. transfer of care at this time.
--- NOTE | 2021-02-11 07:56 | NUR ---
Patient will be admitted to care of Dr. Huffman. Admited to Med/Surg. Will go to room 119-B. Belongings list completed. Report to Danette CASTRO.
[2021-02-11 08:05] VITALS: BP 126/84
[2021-02-11] MEDS ORDERED: KCL 20 MEQ/WATER INJ PREMIX 100 ML IV ONE (08:05)
--- NOTE | 2021-02-11 08:05 | NUR ---
RECEIVED REPORT FORM ER NURSE AT 0805 PATIENT ALERT AND AWAKE X4. RESPIRATION EVEN AND UNLABORED AT ROOM AIR . IV LC ON FFA 18 G . BED IN LOWER POSITION AND CLL LIGHT WITHIN REACH.
[2021-02-11] MEDS ORDERED: ZOLPIDEM 5 MG TAB PO PRN (08:35)
[2021-02-11] MEDS ORDERED: POTASSIUM CHLORIDE 40 MEQ, LIDOCAINE MPF 1% 25 MG in NACL 0.9% 250 ML IV PRN (08:35)
[2021-02-11] MEDS ORDERED: guaiFENesin DM 200/20 MG-10 ML 10 ML UDC PO PRN (08:35)
[2021-02-11] MEDS ORDERED: DOCUSATE SODIUM 100 MG GELCAP PO PRN (08:35)
[2021-02-11] MEDS ORDERED: ACETAMINOPHEN 325 MG TAB PO PRN (08:35)
--- NOTE | 2021-02-11 08:43 | NUR ---
ADMINISTERED POTASSIUM PRESCRIBED PER MD ORDER. PT STATES SHE IS HESITANT BECAUSE SHE SAID LAST TIME SHE HAD IV POTASSIUM IT WAS TOO PAINFUL FOR HER. PT STATES SHE WILL NOT THINK ABOUT THE PAIN. MEDICATION EDUCATION PERFORMED. PT VERBALIZED UNDERSTANDING. SAFETY MEASURES IN PLACE. WILL CONTINUE TO MONITOR
--- NOTE | 2021-02-11 08:50 | NUR ---
PT COULD NOT TOLERATED POTASSIUM IV. PT IN TEARS CRYING SAYING SHE CAN NOT TOLERATE IT ANYMORE. REMOVED FROM PT. PAGED DR. MEJÍA AND AWAITING ORDERS. SAFETY MEASURES IN PLACE. WILL CONTINUE TO MONITOR
[2021-02-11] MEDS: PANTOPRAZOLE 40 MG TABEC PO SCH (09:00)
[2021-02-11] MEDS: ATORVASTATIN 20 MG TAB PO SCH (09:00)
[2021-02-11] MEDS ORDERED: CHOLECALCIFEROL 1,000 IU TAB PO SCH (09:00)
[2021-02-11 10:22] LABS: PROTHROMBIN TIME 10.3 secs (10.8-13.4)
[2021-02-11 10:24] LABS: CHOL/HDL RATIO 2.4 (1-4.5); FREE T4 (FREE THYROXINE) 0.99 ng/dL (0.76-1.46); MAGNESIUM 1.8 mg/dL (1.8-2.4); PHOSPHORUS 2.5 mg/dL (2.5-4.9); THYROID STIMULATING HORMONE 4.79 uIU/mL (0.34-3.74)
[2021-02-11] MEDS: MORPHINE SULFATE 2 MG/ML SYR IVP PRN ×2 (10:51→17:57)
--- NOTE | 2021-02-11 10:51 | NUR ---
MORPHINE 2 MG IVP GIVEN FOR C/O ABDOMINAL PAIN 05/05. PATIENT TOLERATED WELL
[2021-02-11] MEDS ORDERED: POTASSIUM CHLORIDE 40 MEQ, LIDOCAINE MPF 1% 25 MG in NACL 0.9% 250 ML IV SCH (11:00)
--- NOTE | 2021-02-11 11:30 | NUR ---
ASSESSED PATIENT AFTER PAIN MEDICATION AT 1130 PATIENT WAS SLEEP
--- NOTE | 2021-02-11 12:55 | NUR ---
NELIDA CALLED AND WANTED REPORT. TELEPHONE ORDERS RECEIVED. SAFETY MEASURES IN PLACE. WILL CONTINUE TO MONITOR
--- NOTE | 2021-02-11 13:45 | NUR ---
PATIENT OFF TO ERCP. REPORT GIVEN AT BEDSIDE TO OR NURSE. SAFETY MEASURES IN PLACE. WILL CONTINUE TO MONITOR
[2021-02-11] MEDS ORDERED: PROPOFOL 200 MG/20 ML VIAL IV ONE (14:30)
[2021-02-11] MEDS ORDERED: LIDOCAINE 2% 100 MG/5 ML SYR IVP ONE (14:30)
--- NOTE | 2021-02-11 15:01 | NUR ---
DC PLANN[age] YRS OLD FEMALE PATIENT WAS ADMITTED FROM HOME WITH A DX OF PANCREATITIS. PT HAS NO MEDICAL HISTORY. CXR SHOWED NO ACUTE FINDINGS. RAPID COVID TEST NEGATIVE. CT ABD AND US ABD SHOWED ACUTE CHOLECYSTITIS. LIPASE AND AMYLASE LEVEL 4523 AND 692 . ADMINISTERED IVF, IV ABX ROCEPHIN ND PAIN MEDS. CONSULTED WITH SURGEON AND GI DR BALL. DC PLAN TO GO HOME WHEN STABLE CM TO FOLLOW.
--- NOTE | 2021-02-11 15:42 | NUR ---
PATIENT IS BACK TO UNIT FROM ERCP . VITAL SIGHS TAKEN WITHIN JIN LIMIT. PATIENT C/O PAIN 7/10 WE WILL ADMINISTER PRN MEDICATION PRE ORDER. CONTINUE MONITOR PT.
[2021-02-11 16:00] VITALS: BP 123/85
--- NOTE | 2021-02-11 17:57 | NUR ---
PATIENT COMPLAINED OF SEVERE PAIN. PRN MORPHINE ADMINISTERED PRESCRIBED PER MD ORDER. PT TOLERATED WELL. MEDICATION EDUCATION PERFORMED. PT VERBALIZED UNDERSTANDING. SAFETY MEASURES IN PLACE. WILL CONTINUE TO MONITOR
--- NOTE | 2021-02-11 19:08 | NUR ---
PT COMPLAINS OF NAUSEA. PRN ZOFRAN ADMINISTERED PRESCRIBED PER MD ORDER. MEDICATION EDUCATION PERFORMED. PT VERBALIZED UNDERSTANDING. SAFETY MEASURES IN PLACE. WILL CONTINUE TO MONITOR
[2021-02-11] MEDS: ONDANSETRON 4 MG/2 ML VIAL IM/IVP PRN (19:09)
--- NOTE | 2021-02-11 19:10 | NUR ---
ENDORSED TO NIGHTSHIFT NURSE AT BEDSIDE FOR CONTINUITY OF CARE. PT IS STABLE
--- NOTE | 2021-02-11 19:10 | NUR ---
PATIENT ENDORSED BY DAY SHIFT RN FOR CONTINUITY OF CARE. PATIENT ON THE SIDE OF THE BED REPORTING SEVERE NAUSEA. DAY SHIFT ADMINISTERED PRN NAUSEA MEDICATION. PATIENT IS ALERT AND ORIENTED X4. PATIENT SKIN DRY, CLEAN AND INTACT. PATIENT COMPLAINS OF 8 PAIN WITH NO RELIEVE FROM THE PAIN MEDICATION GIVEN AT 1757. PATIENT ON STANDARD PRECAUTIONS. SAFETY MEASURES IN PLACE. CALL LIGHT WITHIN REACH.
--- NOTE | 2021-02-11 19:11 | NUR ---
RECEIVED BEDSIDE REPORT FROM DAY RN. PT IS AAOX4. AMBULATORY ABLE TO MAKE NEEDS KNOWN. PT STATES FEELING NAUSEAS EMESIS BAG WITH PT WILL MEDICATE WITH PRN ZOFRAN. C/C EPIGASTRIC PAIN AND N/V DX PANCREATITIS. PT IS NPO EXCEPT MEDS. PT HAD ERCP EARLIER TODAY WITH DR BALL WITH SPHINCTEROTOMY AND REMOVAL OF STONES FROM COMMON BILE DUCT. PT STILL EXPERIENCING PAIN AND N/V. IV ON R FA D5NS INFUSING AT 150ML/H. SKIN IS INTACT. PT LIPASE HIGH 4701. POC REVIEWED WITH PT. CALL LIGHT IS WITHIN REACH. WILL CONTINUE TO MONITOR.
--- NOTE | 2021-02-11 19:20 | NUR ---
DR CABEZAS IS AT BEDSIDE EXPLAINING SURGERY TO PT. PT STATES NO FURTHER QUESTIONS OR CONCERNS REGARDING LAP MARVIN CONSENT OBTAINED AND PLACED IN CHART.
[2021-02-11 19:37] LABS: BARBITURATE, URINE NEGATIVE ng/ml (NEG <=200); BENZODIAZEPINE, URINE NEGATIVE ng/mL (NEG <=200); CANNABINOID, URINE NEGATIVE ng/mL (NEG <=50); COCAINE, URINE NEGATIVE ng/mL (NEG <=300); PHENCYCLIDINE SCREEN,URINE NEGATIVE ng/mL (NEG <=25)
[2021-02-11 19:38] LABS: OPIATE, URINE POSITIVE ng/mL (NEG <=2000)
[2021-02-11 20:00] VITALS: BP 116/77
[2021-02-11] MEDS: HYDROcodone/APAP 7.5/325 MG 1 TAB PO PRN (20:14)
--- NOTE | 2021-02-11 20:14 | NUR ---
PATIENT REPORTED A DECREASE IN PAIN TO A 7 BUT STATES IT IS STILL INTOLERABLE. REQUESTING PRN PAIN MEDICATION. EDUCATION PROVIDED ON MEDICATION, WELL NONPHARMACOLOGICAL INTERVENTIONS TO HELP REDUCE PAIN. BP 130/79 AND HR 95 PRIOR TO ADMINISTRATION OF PAIN MEDICATION. NEW IV BAG HUNG WELL. CALL LIGHT WITHIN REACH. SAFETY MEASURES IN PLACE. WILL CONTINUE TO MONITOR.
--- NOTE | 2021-02-11 21:25 | NUR ---
DOCTOR NOTIFIED OF PATIENT STILL IN PAIN, EVEN AFTER PRN PAIN MEDICATION. PATIENT RATES PAIN A 6. WAITING ON DOCTOR RESPONSE.
--- NOTE | 2021-02-11 21:50 | NUR ---
DR. MEJÍA ORDERED 1 TIME DOSE OF 1MG DILAUDID AND CHANGED PRN MORPHINE TO Q3HR FOR PAIN
--- NOTE | 2021-02-11 22:04 | NUR ---
PATIENT RATES PAIN 8/10, ADMINISTERED PRN PAIN MEDICATION. BP PRIOR IS 116/68, HEART RATE 78. PATIENT EDUCATED AND VERBALIZED UNDERSTANDING. WILL FOLLOW UP TO ENSURE PAIN RELIEF. CALL LIGHT WITHIN REACH. WILL CONTINUE TO MONITOR.
--- NOTE | 2021-02-11 23:53 | NUR ---
ROUNDED ON PATIENT. PATIENT IS ASLEEP, WITH NO SIGNS OF ACUTE DISTRESS OR PAIN. SAFETY MEASURES IN PLACE. CALL LIGHT WITHIN REACH, WILL CONTINUE TO MONITOR.
--- NOTE | 2021-02-12 00:21 | NUR ---
ROUNDED ON PATIENT, PATIENT RESTING COMFORTABLY IN BED. NO SIGNS OF ACUTE DISTRESS. SAFETY MEASURES IN PLACE. CALL LIGHT WITH IN REACH. WILL CONTINUE TO MONITOR.
--- NOTE | 2021-02-12 03:02 | NUR ---
ROUNDED ON PATIENT, PATIENT RESTING COMFORTABLY IN BED. NO SIGNS OF ACUTE DISTRESS. SAFETY MEASURES IN PLACE. CALL LIGHT WITH IN REACH. WILL CONTINUE TO MONITOR.
[2021-02-12] MEDS: MORPHINE SULFATE 2 MG/ML SYR IVP PRN ×4 (03:14→21:56)
[2021-02-12] MEDS: DEXT 5% /NACL 0.9% 1,000 ML IV SCH ×3 (04:19→17:28)
[2021-02-12] MEDS: ONDANSETRON 4 MG/2 ML VIAL IM/IVP PRN ×3 (04:27→12:56)
--- NOTE | 2021-02-12 04:45 | NUR ---
ROUNDED ON PATIENT. PATIENT COMPLAINED OF NAUSEA BUT NO VOMITING. PRN ANTIEMETIC MEDICATION ADMINISTERED. EDUCATION PROVIDED ON MEDICATION. PATIENT VERBALIZED UNDERSTANDING. SAFETY MEASURES IN PLACE. CALL LIGHT WITHIN REACH. WILL CONTINUE TO MONITOR.
[2021-02-12 05:28] LABS: BASOPHILS % (AUTO) 0.4 % (0.0-2.0); EOSINOPHILS # (AUTO) 0.1 K/uL (0-0.4); EOSINOPHILS % (AUTO) 1.5 % (0.0-4.0); HEMATOCRIT 35.3 % (36-48); HEMOGLOBIN 11.6 g/dL (12.0-16.0); LYMPHOCYTES # (AUTO) 1.9 K/uL (2.5-16.5); LYMPHOCYTES % (AUTO) 24.4 % (20.5-51.1); MEAN CORPUSCULAR HEMOGLOBIN 28 pg (27-31); MEAN CORPUSCULAR HGB CONC 33 g/dL (33-37); MEAN CORPUSCULAR VOLUME 85.6 fL (80-94); MONOCYTES # (AUTO) 0.9 K/uL (0.8-1.0); MONOCYTES % (AUTO) 11.2 % (1.7-9.3); NEUTROPHILS % (AUTO) 62.5 % (42.2-75.2); PLATELET COUNT (AUTO) 309 K/uL (140-450); RED BLOOD CELL COUNT(AUTO) 4.13 MIL/uL (4.20-5.40); RED CELL DISTRIBUTION WIDTH 13.4 % (11.6-13.7); WHITE BLOOD COUNT (AUTO) 7.9 K/uL (4.8-10.8)
[2021-02-12 07:02] LABS: ALBUMIN 2.7 g/dL (3.4-5.0); ANION GAP 11.1 (8-16); CARBON DIOXIDE 24.6 mmol/L (21-32); CREATININE 0.6 mg/dL (0.6-1.3); POTASSIUM 3.7 mmol/L (3.5-5.1); TOTAL BILIRUBIN 0.6 mg/dL (0.0-1.0)
--- NOTE | 2021-02-12 07:23 | NUR ---
PATIENT ENDORSED TO DAY SHIFT FOR CONTINUITY OF CARE. PATIENT IN STABLE CONDITION.
--- NOTE | 2021-02-12 07:28 | NUR ---
RECEIVED BEDSIDE REPORT FROM NIGHTSHIFT NURSE. PT RESTING IN BED. ABLE TO MAKE NEEDS KNOWN. RESPIRATIONS EVEN AND UNLABORED WITH NO SOB OR RESPIRATORY DISTRESS. SKIN WARM AND DRY TO TOUCH. IV SITE IN RFA 18G IS CLEAN, DRY, AND INTACT. SAFETY MEASURES IN PLACE. WILL CONTINUE TO MONITOR
[2021-02-12 08:00] VITALS: BP 110/71
[2021-02-12] MEDS: ATORVASTATIN 20 MG TAB PO SCH (08:42)
[2021-02-12] MEDS: PANTOPRAZOLE 40 MG TABEC PO SCH (08:43)
--- NOTE | 2021-02-12 08:44 | NUR ---
ADMINISTERED SCHED MED PRESCRIBED PER MD ORDER. PT COMPLAINED OF SEVERE PAIN AND NAUSEA. PRN ZOFRAN AND MORPHINE ADMINISTERED PRESCRIBED PER MD ORDER. PT TOLERATED WELL. MEDICATION EDUCATION PERFORMED. PT VERBALIZED UNDERSTANDING. SAFETY MEASURES IN PLACE. WILL CONTINUE TO MONITOR
--- NOTE | 2021-02-12 09:14 | NUR ---
PATIENT HAS BEEN SCREENED AND CATEGORIZED HIGH NUTRITION RISK. PATIENT WILL BE SEEN WITHIN 1-2 DAYS OF ADMISSION. FNS REFERRAL RECEIVED FOR NAUSEA AND VOMITING >3 DAYS. 02/12/[address]
--- NOTE | 2021-02-12 11:03 | NUR ---
PT RESTING IN BED. ABLE TO MAKE NEEDS KNOWN. RESPIRATIONS EVEN AND UNLABORED WITH NO SOB OR RESPIRATORY DISTRESS. SKIN WARM AND DRY TO TOUCH. SAFETY MEASURES IN PLACE. WILL CONTINUE TO MONITOR
--- NOTE | 2021-02-12 12:35 | NUR ---
PT COMPLAINED OF SEVERE PAIN. PRN MORPHINE ADMINISTERED PRESCRIBED PER MD ORDER. PT TOLERATED WELL. SAFETY MEASURES IN PLACE. WILL CONTINUE TO MONITOR
--- NOTE | 2021-02-12 13:01 | NUR ---
PATIENT SITTING ON EDGE OF BED WITH EMESIS BAG. PT COMPLAINS OF NAUSEA. PRN ZOFRAN ADMINISTERED PRESCRIBED PER MD ORDER. MEDICATION EDUCATION PERFORMED. PT VERBALIZED UNDERSTANDING. SAFETY MEASURES IN PLACE. WILL CONTINUE TO MONITOR
--- NOTE | 2021-02-12 13:30 | NUR ---
PT COMPLAINED OF INTACT IV PAIN IN RFA 18G. IV UNABLE TO FLUSH OR RETURN DRAWBACK. NEW IV STARTED IN LAC 20G IS CLEAN, DRY, AND INTACT. PT TOLERATED WELL. SAFETY MEASURES IN PLACE. WILL CONTINUE TO MONITOR
--- NOTE | 2021-02-12 14:00 | NUR ---
PT BROTHER BROUGHT BAG OF BELONGINGS TO PATIENT. BAG GIVEN TO PATIENT. SAFETY MEASURES IN PLACE. WILL CONTINUE TO MONITOR
--- NOTE | 2021-02-12 14:07 | NUR ---
02/12/21 RD INITIAL ASSESSMENT COMPLETED PLEASE REFER TO NUTRITION ASSESSMENT UNDER CARE ACTIVITY FOR ESTIMATED NUTRITIONAL NEEDS. 1. CONTINUE NPO 2. CONSIDER A CARDIAC DIET WHEN MEDICALLY CLEARED 3. RD TO FOLLOW-UP 2-3 DAYS, HIGH RISK DELMY HAQ, RD
--- NOTE | 2021-02-12 15:15 | NUR ---
PT FAMILY BROUGHT IN JUNG FOR PATIENT. JUNG DELIVERED TO PATIENT. SAFETY MEASURES IN PLACE. WILL CONTINUE TO MONITOR
[2021-02-12 16:00] VITALS: BP 121/75
--- NOTE | 2021-02-12 16:41 | NUR ---
PT OFF TO OR. REPORT GIVEN AT BEDSIDE. WILL CONTINUE TO MONITOR
[2021-02-12] MEDS ORDERED: BUPIVACAINE-MPF/EPI 0.25% 30 ML VIAL INJ ONE (18:09)
[2021-02-12] MEDS ORDERED: ROCURONIUM 50 MG/5 ML VIAL IV ONE (18:18)
[2021-02-12] MEDS ORDERED: PROPOFOL 200 MG/20 ML VIAL IV ONE (18:18)
[2021-02-12] MEDS ORDERED: SUCCINYLCHOLINE CHLORIDE 200 MG/10 ML VIAL IVP ONE (18:18)
[2021-02-12] MEDS ORDERED: ONDANSETRON 4 MG/2 ML VIAL ONE (18:18)
[2021-02-12] MEDS ORDERED: DEXAMETHASONE 4 MG/ML VIAL ONE (18:18)
[2021-02-12] MEDS ORDERED: fentaNYL citrate 0.05 MG/ML VIAL ONE (18:18)
[2021-02-12] MEDS ORDERED: DESFLURANE 240 ML BTL INH ONE (18:18)
[2021-02-12] MEDS ORDERED: HYDROmorphone PFS 2 MG/ML SYR ONE ×2 (18:18→20:40)
[2021-02-12] MEDS ORDERED: SUGAMMADEX SODIUM 200 MG/2 ML VIAL IV ONE (18:18)
[2021-02-12] MEDS ORDERED: KETOROLAC 30 MG/ML VIAL ONE (18:18)
--- NOTE | 2021-02-12 18:27 | NUR ---
PT STILL IN OR. SAFETY MEASURES IN PLACE. WILL CONTINUE TO MONITOR
--- NOTE | 2021-02-12 19:20 | NUR ---
ENDORSED AT BEDSIDE TO COLLECTIONS ANALYST NURSE FOR CONTINUITY OF CARE. PATIENT IN STABLE CONDITION.
--- NOTE | 2021-02-12 19:21 | NUR ---
RECEIVED ENDORSEMENT FROM EMILIANO GONSALES RN. PT IS STILL IN THE O.R. PLAN OF CARE DISCUSSED.
[2021-02-12] MEDS ORDERED: ONDANSETRON 4 MG/2 ML VIAL IVP PRN (20:20)
[2021-02-12] MEDS: HYDROmorphone 1 MG/ML AMP IVP PRN ×2 (20:35→20:45)
[2021-02-12 21:15] VITALS: BP 110/68
--- NOTE | 2021-02-12 21:15 | NUR ---
PATIENT IS BACK TO HER ROOM. W/ 5 SURGICAL INCISIONS ON THE ABDOMINAL AREA, DRESSING DRY AND INTACT. V/S MONITORED PER PROTOCOL, PAIN LEVEL TOLERABLE 10. KEPT COMFORTABLE, SAFETY MEASURES IN PLACE, CALL LIGHT WITHIN REACH.
[2021-02-12] MEDS: LACTATED RINGERS 1,000 ML IV SCH (21:33)
--- NOTE | 2021-02-12 23:00 | NUR ---
ASLEEP, AROUSABLE TO VERBAL, PAIN IS TOLERABLE 1/10, WILL CONTINUE TO MONITOR, KEPT COMFORTABLE, CALL LIGHT WITHIN REACH.
[2021-02-13] MEDS: ONDANSETRON 4 MG/2 ML VIAL IM/IVP PRN ×3 (01:00→23:32)
--- NOTE | 2021-02-13 01:00 | NUR ---
ASSISTED PATIENT IN GETTING UP THE BED, PATIENT AMBULATES SLOWLY TO THE RESTROOM, SBA.
[2021-02-13] MEDS: MORPHINE SULFATE 2 MG/ML SYR IVP PRN ×6 (01:02→23:34)
[2021-02-13] MEDS: HYDROmorphone 1 MG/ML AMP IVP PRN (03:47)
[2021-02-13 04:00] VITALS: BP 118/79
--- NOTE | 2021-02-13 04:00 | NUR ---
V/S TAKEN AND RECORDED, KEPT COMFORTABLE, GAVE WARM BLANKET PER PATIENT REQUEST, CALL LIGHT WITHIN REACH.
[2021-02-13 05:13] LABS: BASOPHILS % (AUTO) 0.2 % (0.0-2.0); HEMATOCRIT 35.4 % (36-48); HEMOGLOBIN 11.7 g/dL (12.0-16.0); LYMPHOCYTES # (AUTO) 1.1 K/uL (2.5-16.5); LYMPHOCYTES % (AUTO) 8.4 % (20.5-51.1); MEAN CORPUSCULAR HEMOGLOBIN 28 pg (27-31); MEAN CORPUSCULAR HGB CONC 33 g/dL (33-37); MEAN CORPUSCULAR VOLUME 84.5 fL (80-94); MONOCYTES % (AUTO) 7.4 % (1.7-9.3); NEUTROPHILS # (AUTO) 11.2 K/uL (1.8-7.7); PLATELET COUNT (AUTO) 301 K/uL (140-450); RED BLOOD CELL COUNT(AUTO) 4.19 MIL/uL (4.20-5.40); RED CELL DISTRIBUTION WIDTH 13.4 % (11.6-13.7); WHITE BLOOD COUNT (AUTO) 13.4 K/uL (4.8-10.8)
[2021-02-13 05:35] LABS: ALBUMIN 2.8 g/dL (3.4-5.0); ANION GAP 11.5 (8-16); CARBON DIOXIDE 26.6 mmol/L (21-32); CREATININE 0.6 mg/dL (0.6-1.3); POTASSIUM 4.1 mmol/L (3.5-5.1); TOTAL BILIRUBIN 0.5 mg/dL (0.0-1.0)
[2021-02-13] MEDS: LACTATED RINGERS 1,000 ML IV SCH ×3 (06:21→23:40)
--- NOTE | 2021-02-13 07:45 | NUR ---
PT STABLE, ALL NEEDS ATTENDED, NO DISTRESS, BEDSIDE ENDORSEMENT GIVEN TO AM SHIFT RN FOR CONTINUITY OF CARE.
--- NOTE | 2021-02-13 07:46 | NUR ---
RECEIVED BEDSIDE REPORT FROM NIGHTSHIFT NURSE. PT IS AO X4. RESTING IN BED. ABLE TO MAKE NEEDS KNOWN. RESPIRATIONS EVEN AND UNLABORED WITH NO SOB OR RESPIRATORY DISTRESS NOTED. ON ROOM AIR SKIN WARM AND DRY TO TOUCH. IV SITE IN RH 20G AND LAC 24G. INTACT AND PATENT. SKIN IS WARM AND DRY. S/P LAP MARVIN 02/12. NOTED ABDOMINAL DRESSING WITH NO DRAINAGE. PLAN OF CARE DISCUSSED. SAFETY MEASURES IN PLACE. CALL LIGHT WITHIN REACH. WILL CONTINUE TO MONITOR
[2021-02-13 08:00] VITALS: BP 120/84
[2021-02-13] MEDS: ASPIRIN 81 MG TAB.CHEW PO SCH (09:13)
[2021-02-13] MEDS: ATORVASTATIN 20 MG TAB PO SCH (09:13)
[2021-02-13] MEDS: PANTOPRAZOLE 40 MG TABEC PO SCH (09:13)
--- NOTE | 2021-02-13 09:38 | NUR ---
PATIENT COMPLAINED OF ABD PAIN 06/05. ADMINISTERED MORPHINE IVP PER MD ORDERED.
--- NOTE | 2021-02-13 09:40 | NUR ---
ALL SCHEDULED MEDS GIVEN. PT IS STABLE. NO DISTRESS NOTED. WILL CONTINUE TO MONITOR.
[2021-02-13] MEDS: HYDROcodone/APAP 7.5/325 MG 1 TAB PO PRN ×3 (10:38→21:08)
--- NOTE | 2021-02-13 10:38 | NUR ---
PATIENT STILL COMPLAINED OF ABD PAIN 03/05. ADMINISTERED NORCO PO PER MD ORDERED.
--- NOTE | 2021-02-13 15:30 | NUR ---
PATIENT COMPLAINED OF ABD PAIN 06/05. ADMINISTERED MORPHINE IVP PER MD ORDERED.
[2021-02-13 16:00] VITALS: BP 129/77
--- NOTE | 2021-02-13 17:45 | NUR ---
PATIENT REFUSED TO MOVE AROUND AND GET OUT OF BED WITH THE SCD DEVICE IN PLACE. OFFERED BED COMMODE TO PATIENT AND REFUSED. EDUCATED THE RISK AND BENEFITS OF MOVING AROUND AND PATIENT VERBALIZED UNDERSTAND AND STILL REFUSE
--- NOTE | 2021-02-13 19:41 | NUR ---
ENDORSED TO BALE PILER NURSE FOR CONTINUITY OF CARE. PT IS STABLE.
--- NOTE | 2021-02-13 19:42 | NUR ---
RECEIVED BEDSIDE ENDORSEMENT FROM AM SHIFT RN. AAOX4, ON ROOM AIR, C/O ABD PAIN 04/04, ENCOURAGED RELAXATION, WILL ALSO GIVE PRN PAIN MED ORDERED, SAFETY MEASURES IN PLACE, PLAN OF CARE DISCUSSED, CALL LIGHT WITHIN REACH.
[2021-02-13 20:00] VITALS: BP 104/83
--- NOTE | 2021-02-13 20:00 | NUR ---
ABDOMINAL DRESSING WAS CHANGED BY MATTHEW NELSON. PATIENT TOLERATED PROCEDURE WELL, KEPT COMFORTABLE, WILL CONTINUE TO MONITOR.
--- NOTE | 2021-02-13 21:08 | NUR ---
C/O ABD PAIN, 03/05. ENCOURAGED RELAXATION, NORCO TAB PRN GIVEN ORDERED, WILL CONTINUE TO MONITOR, KEPT COMFORTABLE, CALL LIGHT WITHIN REACH.
--- NOTE | 2021-02-13 23:34 | NUR ---
C/O ABD PAIN 04/04, ENCOURAGED RELAXATION, DEEP BREATHING, MORPHINE IVP GIVEN PRN FOR SEVERE PAIN ORDERED, TOLERATED WELL, IVF FINISHED, HANGED A NEW LR 1L AT 100 ML/HR ORDERED, ZOFRAN IVP ALSO GIVEN BECAUSE PT C/O NAUSEA.
[2021-02-14] MEDS: MORPHINE SULFATE 2 MG/ML SYR IVP PRN ×2 (03:53→08:34)
[2021-02-14] MEDS: ONDANSETRON 4 MG/2 ML VIAL IM/IVP PRN ×2 (03:53→08:28)
--- NOTE | 2021-02-14 03:53 | NUR ---
C/O NAUSEA, ZOFRAN IV GIVEN PRN ORDERED, C/O ABD PAIN 9/10, SHARP, ENCOURAGED RELAXATION TECHNIQUE, PRN PAIN MED GIVEN ORDERED. CALL LIGHT WITHIN REACH.
[2021-02-14 04:00] VITALS: BP 127/85
--- NOTE | 2021-02-14 04:10 | NUR ---
V/S TAKEN AND RECORDED, KEPT COMFORTABLE, CALL LIGHT WITHIN REACH.
[2021-02-14 06:43] LABS: BASOPHILS % (AUTO) 0.4 % (0.0-2.0); EOSINOPHILS # (AUTO) 0.1 K/uL (0-0.4); HEMATOCRIT 34.9 % (36-48); HEMOGLOBIN 11.5 g/dL (12.0-16.0); LYMPHOCYTES % (AUTO) 17.8 % (20.5-51.1); MEAN CORPUSCULAR HEMOGLOBIN 28 pg (27-31); MEAN CORPUSCULAR HGB CONC 33 g/dL (33-37); MEAN CORPUSCULAR VOLUME 85.6 fL (80-94); MONOCYTES # (AUTO) 1.4 K/uL (0.8-1.0); MONOCYTES % (AUTO) 12.5 % (1.7-9.3); NEUTROPHILS # (AUTO) 7.8 K/uL (1.8-7.7); NEUTROPHILS % (AUTO) 68.3 % (42.2-75.2); PLATELET COUNT (AUTO) 311 K/uL (140-450); RED BLOOD CELL COUNT(AUTO) 4.07 MIL/uL (4.20-5.40); RED CELL DISTRIBUTION WIDTH 13.5 % (11.6-13.7); WHITE BLOOD COUNT (AUTO) 11.4 K/uL (4.8-10.8)
[2021-02-14 07:03] LABS: ALBUMIN 2.6 g/dL (3.4-5.0); ANION GAP 10.1 (8-16); CARBON DIOXIDE 27.7 mmol/L (21-32); CREATININE 0.7 mg/dL (0.6-1.3); POTASSIUM 3.8 mmol/L (3.5-5.1); TOTAL BILIRUBIN 0.6 mg/dL (0.0-1.0)
--- NOTE | 2021-02-14 07:11 | NUR ---
PT STABLE, NO DISTRESS, ALL NEEDS ATTENDED, KEPT COMFORTABLE, SAFETY MEASURES IN PLACE, CALL LIGHT WITHIN REACH.
--- NOTE | 2021-02-14 07:15 | NUR ---
RECEIVED PT FROM FREIGHT CLAIM INVESTIGATOR NURSE, MAK, PT IS AWAKE AND LYING ON THE BED WITH SIDE RAILS UP AND CALL LIGHT WITHIN REACH, IV LINES NOTED ON THE LAC G. 24 ON SALINE LOCK AND ON THE RT HAND G. 20 WITH LR INFUSING AT 100ML/HR, PT IS ON ROOM AIR AND IS S/P LAPAROSCOPIC CHOLECYSTECTOMY WITH [address], DRESSING DRY AND INTACT. NO SIGNS OF DISTRESS NOTED AND WILL MONITOR PT.
[2021-02-14] MEDS: ATORVASTATIN 20 MG TAB PO SCH (08:28)
[2021-02-14] MEDS: ASPIRIN 81 MG TAB.CHEW PO SCH (08:30)
[2021-02-14] MEDS: PANTOPRAZOLE 40 MG TABEC PO SCH (08:30)
--- NOTE | 2021-02-14 08:34 | NUR ---
PT WAS GIVEN THE SCHEDULED AM MEDICATIONS NOW VIA ORAL, IV PUSH AND IVPB, PARAMETER CHECKED NAD WILL CONTINUE TO MONITOR PT.
[2021-02-14] MEDS: LACTATED RINGERS 1,000 ML IV SCH (11:17)
--- NOTE | 2021-02-14 11:40 | NUR ---
PT VERBALIZED THAT SHE WALKED AND WAS B ARGENIS TO PASS GAS NOW.
[2021-02-14] MEDS ORDERED: ASPI81CT95 PO (13:25)
[2021-02-14] MEDS ORDERED: DOCU-299 PO (13:25)
[2021-02-14] MEDS ORDERED: ATOR20TA40 PO (13:25)
[2021-02-14] MEDS ORDERED: PANT40EC56 PO (13:25)
[2021-02-14] MEDS: HYDROcodone/APAP 7.5/325 MG 1 TAB PO PRN (13:54)
--- NOTE | 2021-02-14 13:54 | NUR ---
02/14/21 RD FOLLOW UP COMPLETED PLEASE REFER TO NUTRITION PROGRESS NOTE UNDER CARE ACTIVITY FOR ESTIMATED NUTRITION NEEDS. RD RECOMMENDATIONS: 1. RECOMMEND CHANGING PTS DIET TO CARDIAC DIET. 2. WILL CONTINUE TO MONITOR PO INTAKE AND WILL ADD ENSURE BID IF POOR PO INTAKE CONTINUES. 3. LOW FAT DIET EDUCATION PROVIDED TO PT, HANDOUT ALSO PROVIDED. 4. RD TO FOLLOW-UP 2-3 DAYS, HIGH RISK KIRSTIE BLAIR, RD
--- NOTE | 2021-02-14 15:55 | NUR ---
DISCHARGED PT TO HOME, DISCHARGED TEACHINGS AND MEDICATION INSTRUCTIONS GIVEN TO PT AND PT VERBALIZED UNDERSTANDING. IV LINE AND ARM BAND REMOVED. PT IS STABLE AT THIS TIME.
--- NOTE | 2021-02-14 16:15 | NUR ---
PT LEFT THE HOSPITAL ACCOMPANIED BY SISTER.
== END 2021-02-14 15:55 | disposition home or self-care (01) | DRG 710 ==
LOC: MED 03:45 → MTU 07:11
PROVIDERS: ADMIT Family Medicine; ATTEND Family Medicine
PROC: 0F798ZZ Dilation of Common Bile Duct, Via Natural or Artificial Opening Endoscopic (ICD-10-PCS; 2021-02-11)
PROC: 0FC98ZZ Extirpation of Matter from Common Bile Duct, Via Natural or Artificial Opening Endoscopic (ICD-10-PCS; 2021-02-11)
PROC: BF111ZZ Fluoroscopy of Biliary and Pancreatic Ducts using Low Osmolar Contrast (ICD-10-PCS; 2021-02-11)
PROC: 0FT44ZZ Resection of Gallbladder, Percutaneous Endoscopic Approach (ICD-10-PCS; principal; 2021-02-12 15:30)
DX: A41.9 Sepsis, unspecified organism (principal); E43 Unspecified severe protein-calorie malnutrition; K85.10 Biliary acute pancreatitis without necrosis or infection; K76.0 Fatty (change of) liver, not elsewhere classified; E86.0 Dehydration; K20.90 Esophagitis, unspecified without bleeding; K80.00 Calculus of gallbladder with acute cholecystitis without obstruction; N39.0 Urinary tract infection, site not specified; E87.6 Hypokalemia; Z20.822 Contact with and (suspected) exposure to COVID-19; D64.9 Anemia, unspecified; Z68.28 Body mass index [BMI] 28.0-28.9, adult
CPT/HCPCS: 36415; 71045; 74330; 76705; 80053; 80305; 81001; 81025; 82150; 83036; 83605; 83690; 83735; 83880; 84100; 84436; 84439; 84443; 84479; 84484; 84703; 85025; 85610; 85730; 86886; 86900; 86901; 87040; 87081; 87086; 96361; 96365; 96375; 96376; 99285; C1769; J0330; J0696; J1100; J1170; J1885; J2001; J2270; J2405; J2704; J3010; J3480; J3490; J7030; J7060

== ENCOUNTER 2021-10-14 18:34 | Emergency (ER) | payer MEDICAID, SELFPAY ==
[~2021-10-14] VITALS: Ht 170.2 cm; Wt 93.0 kg
[~2021-10-14 18:34] MED LIST changes: +ASPI81CT95 PO; +ATOR20TA40 PO; +DOCU-299 PO; -HYDR-5122 PO; -ONDA4TAB PO; +PANT40EC56 PO
[2021-10-14 19:08] VITALS: BP 136/85
--- NOTE | 2021-10-14 21:20 | NUR ---
PER DR VARGAS NO ANSWER WHEN CALLED IN LOBBY
--- NOTE | 2021-10-15 00:39 | NUR ---
PER TIFFANIE, PT STATES SHE WANTS TO BE SEEN
[2021-10-15 01:14] LABS: BASOPHILS % (AUTO) 0.5 % (0.0-2.0); EOSINOPHILS # (AUTO) 0.2 K/uL (0-0.4); EOSINOPHILS % (AUTO) 2.1 % (0.0-4.0); HEMATOCRIT 41.7 % (36-48); HEMOGLOBIN 14.2 g/dL (12.0-16.0); LYMPHOCYTES # (AUTO) 3.4 K/uL (2.5-16.5); LYMPHOCYTES % (AUTO) 35.9 % (20.5-51.1); MEAN CORPUSCULAR HEMOGLOBIN 28 pg (27-31); MEAN CORPUSCULAR HGB CONC 34 g/dL (33-37); MEAN CORPUSCULAR VOLUME 82.1 fL (80-94); MONOCYTES % (AUTO) 10.4 % (1.7-9.3); NEUTROPHILS # (AUTO) 4.8 K/uL (1.8-7.7); NEUTROPHILS % (AUTO) 51.1 % (42.2-75.2); PLATELET COUNT (AUTO) 355 K/uL (140-450); RED BLOOD CELL COUNT(AUTO) 5.09 MIL/uL (4.20-5.40); RED CELL DISTRIBUTION WIDTH 13.9 % (11.6-13.7); WHITE BLOOD COUNT (AUTO) 9.3 K/uL (4.8-10.8)
[2021-10-15 01:43] LABS: ALBUMIN 3.6 g/dL (3.4-5.0); ANION GAP 13.4 (8-16); CARBON DIOXIDE 26.6 mmol/L (21-32); CREATININE 0.7 mg/dL (0.6-1.3); TOTAL BILIRUBIN 0.2 mg/dL (0.0-1.0)
[2021-10-15 02:00] VITALS: BP 119/81
== END 2021-10-15 02:00 | disposition home or self-care (01) ==
LOC: MED 18:34
DX: R07.9 Chest pain, unspecified (principal); M79.602 Pain in left arm; F41.9 Anxiety disorder, unspecified; Z20.822 Contact with and (suspected) exposure to COVID-19
CPT/HCPCS: 36415; 71045; 80053; 84484; 85025; 93005; 99285; U0003

== ENCOUNTER 2021-11-26 01:32 | Emergency (ER) | payer MEDICAID ==
[~2021-11-26] VITALS: Ht 170.2 cm; Wt 88.5 kg
[2021-11-26 01:52] VITALS: BP 146/98
--- NOTE | 2021-11-26 02:10 | NUR ---
Patient sent to X-ray via wheelchair with health information technologist.
--- NOTE | 2021-11-26 02:15 | NUR ---
Dr. Noyola at [facility] to exam patient.
[2021-11-26] MEDS ORDERED: HYDR-5080 PO (02:26)
[2021-11-26 02:40] VITALS: BP 146/98
--- NOTE | 2021-11-26 02:40 | NUR ---
Patient discharged with v/s stable. Written and verbal after care instructions given and explained. Patient alert, oriented and verbalized understanding of instructions. Ambulatory with steady gait. All questions addressed prior to discharge. ID band removed. Patient advised to follow up with PMD. Rx of Warren given. Patient educated on indication of medication including possible reaction and side effects. Opportunity to ask questions provided and answered.
== END 2021-11-26 02:40 | disposition home or self-care (01) ==
LOC: MED 01:32
DX: M79.675 Pain in left toe(s) (principal); Z79.899 Other long term (current) drug therapy; Z79.82 Long term (current) use of aspirin; Z98.890 Other specified postprocedural states
CPT/HCPCS: 73630; 99283

== ENCOUNTER 2022-12-28 09:01 | Emergency (ER) | payer SELFPAY ==
[~2022-12-28] VITALS: Ht 170.2 cm; Wt 94.8 kg
[~2022-12-28 09:01] MED LIST changes: +HYDR-5080 PO
[2022-12-28 09:09] VITALS: BP 138/94
--- NOTE | 2022-12-28 09:15 | NUR ---
PT AMBULATED TO ER BED 1
[2022-12-28] MEDS ORDERED: KETOROLAC 15 MG/ML VIAL IM ONE (09:45)
[2022-12-28 10:10] LABS: BASOPHILS % (AUTO) 0.2 % (0.0-2.0); EOSINOPHILS # (AUTO) 0.1 K/uL (0-0.4); EOSINOPHILS % (AUTO) 1.3 % (0.0-4.0); HEMATOCRIT 41.5 % (36-48); HEMOGLOBIN 13.8 g/dL (12.0-16.0); LYMPHOCYTES # (AUTO) 1.9 K/uL (2.5-16.5); LYMPHOCYTES % (AUTO) 17.2 % (20.5-51.1); MEAN CORPUSCULAR HEMOGLOBIN 28 pg (27-31); MEAN CORPUSCULAR HGB CONC 33 g/dL (33-37); MEAN CORPUSCULAR VOLUME 83.3 fL (80-94); NEUTROPHILS # (AUTO) 7.9 K/uL (1.8-7.7); NEUTROPHILS % (AUTO) 72.3 % (42.2-75.2); PLATELET COUNT (AUTO) 340 K/uL (140-450); RED BLOOD CELL COUNT(AUTO) 4.98 MIL/uL (4.20-5.40); RED CELL DISTRIBUTION WIDTH 13.5 % (11.6-13.7); WHITE BLOOD COUNT (AUTO) 10.9 K/uL (4.8-10.8)
[2022-12-28 10:12] LABS: APPEARANCE,URINE SL CLOUDY (CLEAR); BILIRUBIN,URINE 1+ (NEGATIVE); BLOOD, URINE 3+ (NEGATIVE); COLOR,URINE ORANGE (YELLOW); LEUKOCYTE ESTERASE ,URINE 2+ (NEGATIVE); NITRITE, URINE NEGATIVE (NEGATIVE); UGLUCOSE NEGATIVE (NEGATIVE)
[2022-12-28 10:24] LABS: RBC,URINE 50-80 /HPF (0-5); WBC,URINE 20-60 /HPF (0-5)
[2022-12-28 10:24] LABS: ALBUMIN 3.4 g/dL (3.4-5.0); ANION GAP 10.5 (8-16); CARBON DIOXIDE 28.2 mmol/L (21-32); CREATININE 0.9 mg/dL (0.6-1.3); POTASSIUM 3.7 mmol/L (3.5-5.1); TOTAL BILIRUBIN 0.5 mg/dL (0.0-1.0)
[2022-12-28] MEDS ORDERED: PHENAZOPYRIDINE 100 MG TAB PO ONE (11:10)
[2022-12-28] MEDS ORDERED: cefTRIAXone 1,000 MG in LIDOCAINE MPF 1% 2.1 ML IM ONE (11:10)
[2022-12-28] MEDS ORDERED: LIDOCAINE MPF 1% 5 ML ONE (11:25)
[2022-12-28] MEDS ORDERED: cefTRIAXone 1,000 MG VIAL ONE (11:25)
[2022-12-28] MEDS ORDERED: CEPH-588 PO (11:43)
[2022-12-28] MEDS ORDERED: PHEN-1877 PO (11:43)
[2022-12-28] MEDS ORDERED: ACET-2619 PO (11:44)
--- NOTE | 2022-12-28 12:00 | NUR ---
Patient discharged with v/s stable. Written and verbal after care instructions ABOUT PYELONEPHRITIS given and explained. Patient alert, oriented and verbalized understanding of instructions. Ambulatory with steady gait. All questions addressed prior to discharge. ID band removed. Patient advised to follow up with PMD. Rx of TYLENOL, KEFLEX, PYRIDIUM given. Patient educated on indication of medication including possible reaction and side effects. Opportunity to ask questions provided and answered.
== END 2022-12-28 12:00 | disposition home or self-care (01) ==
LOC: MED 09:01
DX: N12 Tubulo-interstitial nephritis, not specified as acute or chronic (principal); K42.9 Umbilical hernia without obstruction or gangrene; K76.9 Liver disease, unspecified; Z79.899 Other long term (current) drug therapy; Z90.49 Acquired absence of other specified parts of digestive tract
CPT/HCPCS: 36415; 74176; 80053; 81001; 81025; 83605; 85025; 87040; 87086; 96372; 99285; J0696; J1885; J2001

== ENCOUNTER 2024-06-11 09:14 | Emergency (ER) | payer SELFPAY ==
[~2024-06-11] VITALS: Ht 170.2 cm; Wt 92.1 kg
[~2024-06-11 09:14] MED LIST changes: +ACET-2619 PO; +CEPH-588 PO; +PHEN-1877 PO
[2024-06-11 09:24] VITALS: BP 152/101; PULSE 79; RESP 18; TEMP 98.2; O2SAT 99
[2024-06-11 09:59] LABS: APPEARANCE,URINE CLEAR (CLEAR); BILIRUBIN,URINE NEGATIVE (NEGATIVE); BLOOD, URINE TRACE-I (NEGATIVE); COLOR,URINE ORANGE (YELLOW); LEUKOCYTE ESTERASE ,URINE TRACE (NEGATIVE); NITRITE, URINE POSITIVE (NEGATIVE); PROTEIN,URINE TRACE (NEGATIVE); UGLUCOSE TRACE (NEGATIVE)
[2024-06-11] MEDS ORDERED: CETI10SG1 PO (09:59)
[2024-06-11] MEDS ORDERED: NITR100C7 PO (09:59)
[2024-06-11] MEDS ORDERED: FAMO-92 PO (09:59)
[2024-06-11 10:04] VITALS: BP 145/89; PULSE 77; RESP 18; TEMP 98.2; O2SAT 99
[2024-06-11 10:11] LABS: BACTERIA,URINE 10-30 (MOD) /HPF (None Seen); SQUAMOUS EPITHELIAL CELL,UR 4-10 (MOD) /LPF (0-3 (FEW))
== END 2024-06-11 10:04 | disposition home or self-care (01) ==
LOC: MED 09:14
DX: T78.40XA Allergy, unspecified, initial encounter (principal); N39.0 Urinary tract infection, site not specified; Z79.899 Other long term (current) drug therapy; Z90.49 Acquired absence of other specified parts of digestive tract; Z98.890 Other specified postprocedural states; X58.XXXA Exposure to other specified factors, initial encounter
CPT/HCPCS: 81001; 81025; 87086; 99283